=== PATIENT | female | born 1980 | race Caucasian/White ===

== ENCOUNTER 2018-07-14 13:25 | Emergency (ER) | payer MEDICAID ==
[~2018-07-14] VITALS: Ht 165.1 cm; Wt 128.0 kg
[2018-07-14 14:15] LABS: BASOPHILS # (AUTO) 0.1 X10'3 (0-0.2); EOSINOPHILS # (AUTO) 0.2 X10'3 (0-0.9); EOSINOPHILS % (AUTO) 1.6 % (0-6); HEMATOCRIT 45.1 % (35.0-45.0); HEMOGLOBIN 15.3 g/dl (12.0-16.0); LYMPHOCYTES # (AUTO) 2.9 X10'3 (1.1-4.8); LYMPHOCYTES % (AUTO) 25.8 % (21-51); MEAN CORPUSCULAR HEMOGLOBIN 28.6 PG (27.0-31.0); MEAN CORPUSCULAR VOLUME 84.1 FL (78-98); MEAN PLATELET VOLUME 7.8 FL (7.4-10.4); MONOCYTES # (AUTO) 0.8 X10'3 (0-0.9); MONOCYTES % (AUTO) 7.3 % (2-12); NEUTROPHILS # (AUTO) 7.2 X10'3 (1.8-7.7); NEUTROPHILS % (AUTO) 64.3 % (42-75); PLATELET COUNT 329 X10'3 (140-440); RED BLOOD COUNT 5.36 X10'6 (4.20-5.60); RED CELL DISTRIBUTION WIDTH 13.1 % (11.5-14.5); WHITE BLOOD COUNT 11.1 X10'3 (4.5-11.0)
[2018-07-14 14:32] LABS: ALANINE AMINOTRANSFERASE 62 U/L (12-78); ALBUMIN/GLOBULIN RATIO 0.9 (1.1-1.5); ALKALINE PHOSPHATASE 111 IU/L (46-116); ANION GAP 6 (8-16); ASPARTATE AMINO TRANSFERASE 32 U/L (10-37); BILIRUBIN,TOTAL 0.4 MG/DL (0.1-1.0); BLOOD UREA NITROGEN 14 MG/DL (7-18); BUN/CREATININE RATIO 18.9 (6.6-38.0); CALCIUM 9.1 MG/DL (8.5-10.1); CHLORIDE 101 MMOL/L (99-107); CREATININE 0.74 MG/DL (0.40-0.90); GLUCOSE 302 MG/DL (70-104); LIPASE 151 U/L (73-393); POTASSIUM 4.2 MMOL/L (3.5-5.1); SODIUM 136 MMOL/L (135-145); TOTAL CARBON DIOXIDE 28.8 MMOL/L (24-32); TOTAL PROTEIN 8.4 G/DL (6.4-8.2); eGFR 87 ML/MIN
[2018-07-14 15:10] LABS: CLARITY,URINE CLEAR (Clear); COLOR,URINE YELLOW (Yellow); GLUCOSE, URINE >=1000 mg/dl (Neg); KETONES,URINE NEGATIVE (Neg); LEUKOCYTE ESTERASE ,URINE NEGATIVE (Neg); NITRITES, URINE NEGATIVE (Neg); OCCULT BLOOD,URINE TRACE-LYSED (Neg); PROTEIN,URINE TRACE mg/dl (Neg); UA COLLECTION TYPE NON-SPECIFIED; UROBILINOGEN,URINE 0.2 E.U/dL (0.2-1.0)
[2018-07-14 15:11] LABS: URINE HCG NEGATIVE (NEG)
[2018-07-14 15:16] LABS: BACTERIA,URINE 1+ /HPF (Neg); HYALINE CASTS 0-3 /LPF (NEGATIVE); RBC,URINE 0-2 /HPF (0-2); SQUAMOUS EPITHELIAL CELL,UR MODERATE /LPF (FEW); WBC,URINE 0-4 /HPF (0-4)
[2018-07-14] MEDS ORDERED: normal saline 1000ML IV soln IVB ONE (15:30)
[2018-07-14] MEDS ORDERED: ketorolac tromethamine 15mg/ml inj. IV ONE (15:30)
[2018-07-14] MEDS ORDERED: proCHLORperazine 10 MG/2 ml inj IV ONE (15:30)
[2018-07-14] MEDS ORDERED: diphenhydrAMINE 50 mg/ml inj IV ONE (15:30)
[2018-07-14 17:15] VITALS: BP 183/110
== END 2018-07-14 17:43 | disposition home or self-care (01) ==
LOC: ER 13:26
DX: K76.0 Fatty (change of) liver, not elsewhere classified (principal); R19.7 Diarrhea, unspecified; R11.10 Vomiting, unspecified; I10 Essential (primary) hypertension; E11.9 Type 2 diabetes mellitus without complications; F17.200 Nicotine dependence, unspecified, uncomplicated; Z88.0 Allergy status to penicillin
CPT/HCPCS: 36415; 74176; 80053; 81001; 81025; 82948; 83690; 85025; 96374; 96375; 99284; J0780; J1200; J1885

== ENCOUNTER 2020-02-01 11:29 | Emergency (ER) | payer MEDICAID ==
[~2020-02-01] VITALS: Ht 165.1 cm; Wt 122.7 kg
[2020-02-01 11:41] VITALS: BP 149/99
[2020-02-01] MEDS ORDERED: HYDR-4383 PO (12:10)
[2020-02-01] MEDS ORDERED: HYDROcodone/acetaminophen 10/325mg tab PO ONE (12:10)
[2020-02-01] MEDS ORDERED: clindamycin 150mg capsule PO ONE (12:10)
[2020-02-01] MEDS ORDERED: dexamethasone 4mg tablet PO SCH (12:10)
== END 2020-02-01 12:36 | disposition home or self-care (01) ==
LOC: ER 11:29
DX: K04.7 Periapical abscess without sinus (principal); L03.211 Cellulitis of face; I10 Essential (primary) hypertension; E11.9 Type 2 diabetes mellitus without complications; Z98.890 Other specified postprocedural states; Z88.0 Allergy status to penicillin; Z79.899 Other long term (current) drug therapy
CPT/HCPCS: 99283

== ENCOUNTER 2020-02-03 07:07 | Emergency (ER) | payer MEDICAID ==
[~2020-02-03] VITALS: Ht 165.1 cm; Wt 105.6 kg
[~2020-02-03 07:07] MED LIST: HYDR-4383 PO
[2020-02-03 08:00] LABS: BASOPHILS # (AUTO) 0.1 X10'3 (0-0.2); BASOPHILS % (AUTO) 1.1 % (0-1); EOSINOPHILS # (AUTO) 0.1 X10'3 (0-0.9); EOSINOPHILS % (AUTO) 0.6 % (0-6); LYMPHOCYTES # (AUTO) 3.5 X10'3 (1.1-4.8); LYMPHOCYTES % (AUTO) 29.2 % (21-51); MEAN CORPUSCULAR HEMOGLOBIN 29.2 PG (27.0-31.0); MEAN CORPUSCULAR HGB CONC 34.2 g/dL (33.0-36.5); MEAN CORPUSCULAR VOLUME 85.6 FL (78-98); MONOCYTES # (AUTO) 0.8 X10'3 (0-0.9); MONOCYTES % (AUTO) 6.5 % (2-12); NEUTROPHILS # (AUTO) 7.6 X10'3 (1.8-7.7); NEUTROPHILS % (AUTO) 62.6 % (42-75); PLATELET COUNT 295 X10'3 (140-440); RED BLOOD COUNT 4.79 X10'6 (4.20-5.60); RED CELL DISTRIBUTION WIDTH 13.1 % (11.5-14.5); WHITE BLOOD COUNT 12.1 X10'3 (4.5-11.0)
[2020-02-03 08:10] LABS: ALBUMIN 3.4 G/DL (3.4-5.0); ANION GAP 6 (8-16); BLOOD UREA NITROGEN 16 MG/DL (7-18); BUN/CREATININE RATIO 26.7 (6.6-38.0); CALCIUM 7.9 MG/DL (8.5-10.1); CHLORIDE 100 MMOL/L (99-107); GLUCOSE 249 MG/DL (70-104); POTASSIUM 3.6 MMOL/L (3.5-5.1); SODIUM 134 MMOL/L (135-145); TOTAL CARBON DIOXIDE 28.1 MMOL/L (24-32); eGFR > 90 ML/MIN
[2020-02-03] MEDS ORDERED: ondansetron/PF 4mg/2ml inj IV ONE (08:10)
[2020-02-03] MEDS ORDERED: iohexol 300mg/ml 100ml inj. ONE (08:15)
[2020-02-03] MEDS ORDERED: LIDOcaine 1% W/epiNEPHrine 1:200,000 10ml vial IJ ONE (09:20)
[2020-02-03] MEDS ORDERED: CHLO118M PO (10:00)
--- NOTE | 2020-02-03 10:10 | NUR ---
PATIENT HAD VS RECHECK AFTER PROCEDURE. BP 204/111. PATIENT STATES SHE HAS HYPERTENSION AND DID NOT TAKE HER MEDS THIS MORNING. DR. EMERSON NOTIFIED OF ELEVATED BP AND REINFORCED THAT PATIENT SHOULD TAKE BP MEDS WHEN SHE GETS HOME.
[2020-02-03 10:16] VITALS: BP 204/111
== END 2020-02-03 10:17 | disposition home or self-care (01) ==
LOC: ER 07:07
DX: K04.7 Periapical abscess without sinus (principal); I10 Essential (primary) hypertension; E11.9 Type 2 diabetes mellitus without complications; F12.90 Cannabis use, unspecified, uncomplicated; Z98.890 Other specified postprocedural states; Z88.0 Allergy status to penicillin; Z79.899 Other long term (current) drug therapy
CPT/HCPCS: 36415; 41800; 70487; 80048; 85025; 96374; 99285; J2405; Q9967

== ENCOUNTER 2020-04-21 16:12 | Emergency (ER) | payer MEDICAID ==
[~2020-04-21] VITALS: Ht 165.1 cm; Wt 122.7 kg
[~2020-04-21 16:12] MED LIST changes: +CHLO118M PO
[2020-04-21 17:36] VITALS: BP 164/115
== END 2020-04-21 18:26 | disposition home or self-care (01) ==
LOC: ER 16:12
DX: U07.1 COVID-19 (principal); R06.02 Shortness of breath; I10 Essential (primary) hypertension; E11.9 Type 2 diabetes mellitus without complications; Z98.891 History of uterine scar from previous surgery; Z88.0 Allergy status to penicillin; Z79.899 Other long term (current) drug therapy
CPT/HCPCS: 99283

== ENCOUNTER 2020-11-24 10:55 | Emergency (ER) | payer MEDICAID ==
[~2020-11-24] VITALS: Ht 165.1 cm; Wt 123.2 kg
[2020-11-24 12:11] LABS: BASOPHILS # (AUTO) 0.1 X10'3 (0-0.2); BASOPHILS % (AUTO) 0.8 % (0-1); EOSINOPHILS # (AUTO) 0.2 X10'3 (0-0.9); EOSINOPHILS % (AUTO) 1.8 % (0-6); HEMATOCRIT 44.2 % (35.0-45.0); HEMOGLOBIN 14.8 g/dl (12.0-16.0); LYMPHOCYTES # (AUTO) 2.9 X10'3 (1.1-4.8); LYMPHOCYTES % (AUTO) 26.5 % (21-51); MEAN CORPUSCULAR HEMOGLOBIN 29.2 PG (27.0-31.0); MEAN CORPUSCULAR HGB CONC 33.6 g/dL (33.0-36.5); MEAN CORPUSCULAR VOLUME 86.8 FL (78-98); MEAN PLATELET VOLUME 7.7 FL (7.4-10.4); MONOCYTES # (AUTO) 0.8 X10'3 (0-0.9); MONOCYTES % (AUTO) 7.6 % (2-12); NEUTROPHILS % (AUTO) 63.3 % (42-75); PLATELET COUNT 347 X10'3 (140-440); RED BLOOD COUNT 5.09 X10'6 (4.20-5.60); RED CELL DISTRIBUTION WIDTH 12.9 % (11.5-14.5)
[2020-11-24 12:15] LABS: URINE HCG NEGATIVE (NEG)
[2020-11-24 12:17] LABS: CLARITY,URINE CLOUDY (Clear); COLOR,URINE YELLOW (Yellow); GLUCOSE, URINE NEGATIVE (Neg); KETONES,URINE NEGATIVE (Neg); LEUKOCYTE ESTERASE ,URINE NEGATIVE (Neg); NITRITES, URINE NEGATIVE (Neg); OCCULT BLOOD,URINE NEGATIVE (Neg); PROTEIN,URINE NEGATIVE (Neg); UROBILINOGEN,URINE 0.2 E.U/dL (0.2-1.0)
[2020-11-24 12:25] LABS: ALANINE AMINOTRANSFERASE 62 U/L (12-78); ALBUMIN 3.9 G/DL (3.4-5.0); ALBUMIN/GLOBULIN RATIO 0.9 (1.1-1.5); ALKALINE PHOSPHATASE 66 IU/L (46-116); ANION GAP 12 (8-16); ASPARTATE AMINO TRANSFERASE 37 U/L (10-37); BILIRUBIN,TOTAL 0.7 MG/DL (0.1-1.0); BLOOD UREA NITROGEN 13 MG/DL (7-18); CHLORIDE 100 MMOL/L (99-107); CREATININE 0.62 MG/DL (0.40-0.90); GLUCOSE 145 MG/DL (70-104); LIPASE 134 U/L (73-393); POTASSIUM 4.2 MMOL/L (3.5-5.1); SODIUM 140 MMOL/L (135-145); TOTAL CARBON DIOXIDE 27.9 MMOL/L (24-32); TOTAL PROTEIN 8.3 G/DL (6.4-8.2); eGFR > 90 ML/MIN
[2020-11-24 12:27] LABS: MUCUS STRANDS FEW /LPF (Neg); SQUAMOUS EPITHELIAL CELL,UR MODERATE /LPF (FEW); UA COLLECTION TYPE CLN CATCH MIDSTREAM
[2020-11-24 12:28] LABS: BACTERIA,URINE 1+ /HPF (Neg); RBC,URINE 0-2 /HPF (0-2); WBC,URINE 0-4 /HPF (0-4)
[2020-11-24] MEDS ORDERED: FAMO40TA73 PO (14:41)
[2020-11-24 15:21] VITALS: BP 136/87
== END 2020-11-24 15:25 | disposition home or self-care (01) ==
LOC: ER 10:55
DX: R10.13 Epigastric pain (principal); R11.0 Nausea; I10 Essential (primary) hypertension; E11.9 Type 2 diabetes mellitus without complications; Z98.890 Other specified postprocedural states; Z88.0 Allergy status to penicillin; Z79.899 Other long term (current) drug therapy
CPT/HCPCS: 36415; 76700; 80053; 81001; 81025; 83690; 85025; 99284

== ENCOUNTER → 2021-03-01 | Outpatient (CLI) | payer MEDICAID ==
[~2021-03-01] MED LIST changes: +FAMO40TA73 PO
== END | disposition home or self-care (01) ==
LOC: RAD 08:37 → EDSTATUS 09:00
PROVIDERS: ATTEND Physician Assistant Medical
DX: R10.13 Epigastric pain (principal); E11.9 Type 2 diabetes mellitus without complications
CPT/HCPCS: 78264; A9541

== ENCOUNTER 2021-05-24 02:39 | Emergency (ER) | payer MEDICAID ==
[~2021-05-24] VITALS: Ht 165.1 cm; Wt 122.7 kg
[2021-05-24 03:00] VITALS: BP 187/117
[2021-05-24 03:38] LABS: BASOPHILS # (AUTO) 0.1 X10'3 (0-0.2); BASOPHILS % (AUTO) 0.8 % (0-1); EOSINOPHILS # (AUTO) 0.1 X10'3 (0-0.9); EOSINOPHILS % (AUTO) 1.7 % (0-6); HEMATOCRIT 44.2 % (35.0-45.0); LYMPHOCYTES # (AUTO) 1.8 X10'3 (1.1-4.8); LYMPHOCYTES % (AUTO) 25.5 % (21-51); MEAN CORPUSCULAR HEMOGLOBIN 29.3 PG (27.0-31.0); MEAN CORPUSCULAR VOLUME 86.4 FL (78-98); MEAN PLATELET VOLUME 8.1 FL (7.4-10.4); MONOCYTES # (AUTO) 0.8 X10'3 (0-0.9); MONOCYTES % (AUTO) 11.1 % (2-12); NEUTROPHILS # (AUTO) 4.4 X10'3 (1.8-7.7); NEUTROPHILS % (AUTO) 60.9 % (42-75); PLATELET COUNT 252 X10'3 (140-440); RED BLOOD COUNT 5.11 X10'6 (4.20-5.60); RED CELL DISTRIBUTION WIDTH 13.5 % (11.5-14.5); WHITE BLOOD COUNT 7.2 X10'3 (4.5-11.0)
[2021-05-24 03:45] LABS: ALBUMIN 3.5 G/DL (3.4-5.0); ANION GAP 12 (8-16); BLOOD UREA NITROGEN 14 MG/DL (7-18); BUN/CREATININE RATIO 23.3 (6.6-38.0); CALCIUM 8.6 MG/DL (8.5-10.1); CHLORIDE 101 MMOL/L (99-107); GLUCOSE 257 MG/DL (70-104); SODIUM 136 MMOL/L (135-145); TOTAL CARBON DIOXIDE 23.4 MMOL/L (24-32); eGFR > 90 ML/MIN
[2021-05-24 03:48] LABS: D-DIMER 0.27 MG/L FEU (0-0.50)
[2021-05-24] MEDS ORDERED: dexamethasone 4mg tablet PO ONE ×2 (03:55→04:00)
== END 2021-05-24 04:26 | disposition home or self-care (01) ==
LOC: ER 02:40
DX: U07.1 COVID-19 (principal); I10 Essential (primary) hypertension; E11.9 Type 2 diabetes mellitus without complications; Z98.890 Other specified postprocedural states; Z88.0 Allergy status to penicillin
CPT/HCPCS: 36415; 71045; 80048; 85025; 85379; 87635; 93005; 99285; C9803

== ENCOUNTER 2022-05-14 06:41 | Emergency (ER) | payer MEDICAID ==
[~2022-05-14] VITALS: Ht 167.6 cm; Wt 118.0 kg
[2022-05-14] MEDS ORDERED: ketorolac tromethamine 15mg/ml inj. IV ONE (07:35)
[2022-05-14] MEDS ORDERED: pantoprazole 40 MG vial IV ONE (07:35)
[2022-05-14] MEDS ORDERED: normal saline 1000ML IV soln IVB ONE (07:35)
[2022-05-14 07:51] LABS: BASOPHILS # (AUTO) 0.1 X10'3 (0-0.2); BASOPHILS % (AUTO) 1.2 % (0-1); EOSINOPHILS # (AUTO) 0.1 X10'3 (0-0.9); EOSINOPHILS % (AUTO) 1.5 % (0-6); HEMOGLOBIN 14.4 g/dl (12.0-16.0); LYMPHOCYTES # (AUTO) 2.5 X10'3 (1.1-4.8); LYMPHOCYTES % (AUTO) 25.9 % (21-51); MEAN CORPUSCULAR HEMOGLOBIN 29.7 PG (27.0-31.0); MEAN CORPUSCULAR HGB CONC 34.3 g/dL (33.0-36.5); MEAN CORPUSCULAR VOLUME 86.5 FL (78-98); MEAN PLATELET VOLUME 7.4 FL (7.4-10.4); MONOCYTES # (AUTO) 0.6 X10'3 (0-0.9); MONOCYTES % (AUTO) 6.7 % (2-12); NEUTROPHILS # (AUTO) 6.2 X10'3 (1.8-7.7); NEUTROPHILS % (AUTO) 64.7 % (42-75); PLATELET COUNT 293 X10'3 (140-440); RED BLOOD COUNT 4.85 X10'6 (4.20-5.60); RED CELL DISTRIBUTION WIDTH 13.2 % (11.5-14.5); WHITE BLOOD COUNT 9.6 X10'3 (4.5-11.0)
[2022-05-14] MEDS ORDERED: pantoprazole 40MG/NS 100ML BAG 100 ML IV ONE (07:55)
[2022-05-14 08:05] LABS: ALANINE AMINOTRANSFERASE 40 U/L (12-78); ALBUMIN 3.7 G/DL (3.4-5.0); ALBUMIN/GLOBULIN RATIO 0.9 (1.1-1.5); ALKALINE PHOSPHATASE 80 IU/L (46-116); ANION GAP 9 (8-16); ASPARTATE AMINO TRANSFERASE 29 U/L (10-37); BILIRUBIN,TOTAL 0.5 MG/DL (0.1-1.0); BLOOD UREA NITROGEN 13 MG/DL (7-18); BUN/CREATININE RATIO 20.3 (6.6-38.0); CALCIUM 8.6 MG/DL (8.5-10.1); CHLORIDE 102 MMOL/L (99-107); CREATININE 0.64 MG/DL (0.40-0.90); GLUCOSE 215 MG/DL (70-104); LIPASE 90 U/L (73-393); SODIUM 137 MMOL/L (135-145); TOTAL PROTEIN 7.6 G/DL (6.4-8.2); eGFR > 90 ML/MIN
[2022-05-14 09:48] LABS: CLARITY,URINE SLIGHTLY CLOUDY (Clear); COLOR,URINE YELLOW (Yellow); GLUCOSE, URINE 250 mg/dl (Neg); KETONES,URINE NEGATIVE (Neg); LEUKOCYTE ESTERASE ,URINE NEGATIVE (Neg); NITRITES, URINE NEGATIVE (Neg); OCCULT BLOOD,URINE NEGATIVE (Neg); PROTEIN,URINE NEGATIVE (Neg); UROBILINOGEN,URINE 0.2 E.U/dL (0.2-1.0)
[2022-05-14 09:51] LABS: URINE HCG NEGATIVE (NEG)
[2022-05-14 09:53] LABS: UA COLLECTION TYPE CLN CATCH MIDSTREAM
[2022-05-14 09:56] LABS: BACTERIA,URINE FEW /HPF (Neg); MUCUS STRANDS MODERATE /LPF (Neg); RBC,URINE NONE SEEN /HPF (0-2); SQUAMOUS EPITHELIAL CELL,UR MODERATE /LPF (FEW); WBC,URINE 0-4 /HPF (0-4)
[2022-05-14 10:20] VITALS: BP 171/112
[2022-05-14] MEDS ORDERED: PANT-47 PO (10:28)
[2022-05-14] MEDS ORDERED: ondansetron/PF 4mg/2ml inj IV ONE (10:30)
[2022-05-14] MEDS ORDERED: morphine 4 MG/ML inj SYRINge IV ONE (10:30)
== END 2022-05-14 10:39 | disposition home or self-care (01) ==
LOC: ER 06:41
DX: G89.29 Other chronic pain (principal); R10.30 Lower abdominal pain, unspecified; I10 Essential (primary) hypertension; E11.9 Type 2 diabetes mellitus without complications; Z88.0 Allergy status to penicillin; Z79.899 Other long term (current) drug therapy; Z79.1 Long term (current) use of non-steroidal anti-inflammatories (NSAID)
CPT/HCPCS: 36415; 80053; 81001; 81025; 83690; 85025; 96365; 96375; 99284; C9113; J1885; J2270; J2405; J7030

== ENCOUNTER 2023-02-16 17:27 | Emergency (ER) | payer MEDICAID ==
[~2023-02-16] VITALS: Ht 165.1 cm; Wt 116.8 kg
[~2023-02-16 17:27] MED LIST changes: +PANT-47 PO
[2023-02-16 17:51] LABS: EOSINOPHILS # (AUTO) 0.2 X10'3 (0-0.9); MONOCYTES # (AUTO) 0.7 X10'3 (0-0.9)
[2023-02-16 17:53] LABS: BASOPHILS # (AUTO) 0.1 X10'3 (0-0.2); BASOPHILS % (AUTO) 0.9 % (0-1); EOSINOPHILS % (AUTO) 1.8 % (0-6); HEMATOCRIT 42.8 % (35.0-45.0); HEMOGLOBIN 14.6 g/dl (12.0-16.0); LYMPHOCYTES # (AUTO) 3.4 X10'3 (1.1-4.8); LYMPHOCYTES % (AUTO) 30.1 % (21-51); MEAN CORPUSCULAR HEMOGLOBIN 29.8 PG (27.0-31.0); MEAN CORPUSCULAR HGB CONC 34.1 g/dL (33.0-36.5); MEAN CORPUSCULAR VOLUME 87.5 FL (78-98); MEAN PLATELET VOLUME 7.6 FL (7.4-10.4); MONOCYTES % (AUTO) 6.5 % (2-12); NEUTROPHILS # (AUTO) 6.8 X10'3 (1.8-7.7); NEUTROPHILS % (AUTO) 60.7 % (42-75); PLATELET COUNT 306 X10'3 (140-440); RED BLOOD COUNT 4.89 X10'6 (4.20-5.60); RED CELL DISTRIBUTION WIDTH 13.5 % (11.5-14.5); WHITE BLOOD COUNT 11.2 X10'3 (4.5-11.0)
[2023-02-16 18:20] LABS: ALANINE AMINOTRANSFERASE 41 U/L (12-78); ALBUMIN 3.6 G/DL (3.4-5.0); ALBUMIN/GLOBULIN RATIO 0.8 (1.1-1.5); ALKALINE PHOSPHATASE 69 IU/L (46-116); ANION GAP 5 (8-16); ASPARTATE AMINO TRANSFERASE 24 U/L (10-37); BILIRUBIN,TOTAL 0.7 MG/DL (0.1-1.0); BLOOD UREA NITROGEN 18 MG/DL (7-18); BUN/CREATININE RATIO 18.6 (10.0-20.0); CHLORIDE 103 MMOL/L (99-107); CREATININE 0.97 MG/DL (0.40-0.90); GLUCOSE 154 MG/DL (70-104); POTASSIUM 3.8 MMOL/L (3.5-5.1); SODIUM 136 MMOL/L (135-145); TOTAL CARBON DIOXIDE 27.7 MMOL/L (24-32); TOTAL PROTEIN 7.9 G/DL (6.4-8.2); eGFR 63 ML/MIN
[2023-02-16 18:23] LABS: PRO BRAIN NATRIURETIC PEPTIDE 53 PG/ML (0-125)
[2023-02-16] MEDS ORDERED: NORMAL SALINE IV ONE (21:15)
[2023-02-16] MEDS ORDERED: MAGNESIUM SULF IV ONE (21:15)
[2023-02-16] MEDS ORDERED: magnesium sulf injection 1 GM in normal saline 50ml IV soln 50 ML IV ONE (21:15)
[2023-02-16] MEDS: normal saline 1000ml 1,000 ML IV SCH ×3 (21:50→22:50)
[2023-02-16 22:16] LABS: HCG SERUM QL NEGATIVE
[2023-02-16] MEDS ORDERED: iohexol 350MG/ML 100ml bottle IV ONE (22:36)
[2023-02-17] MEDS ORDERED: OMEP20CA16 PO (00:03)
[2023-02-17] MEDS ORDERED: SEMA0.258 (00:03)
[2023-02-17] MEDS ORDERED: CHOL20003 PO (00:03)
[2023-02-17] MEDS ORDERED: VALS80TA32 PO (00:03)
[2023-02-17] MEDS: normal saline 1000ml 1,000 ML IV SCH ×2 (00:06→00:50)
[2023-02-17 05:00] VITALS: TEMP 98.1
--- NOTE | 2023-02-17 07:29 | NUR ---
MRI FORM FAXED, ATTEMPTED TO CALL MRI AND NOTIFY THEM PT HAS TWO FACIAL PIERCING THAT SHE STATES CANNOT BE REMOVED.
--- NOTE | 2023-02-17 08:10 | NUR ---
SPOKE WITH BRAEDEN CORDERO, WHO STATED LIP AND NOSE RING CAN REMAIN IN FOR EXAM.
[2023-02-17] MEDS ORDERED: LORazepam 2 mg/ml vial IV ONE (08:15)
--- NOTE | 2023-02-17 09:13 | NUR ---
Pt to MRI via WC with coding tech
[2023-02-17] MEDS ORDERED: acetaminophen 325mg tablet PO ONE (11:35)
--- NOTE | 2023-02-17 13:34 | NUR ---
MD AT BEDSIDE UPDATING PATIENT AND FAMILY MEMBERS. PER OKAY FOR PT TO EAT
--- NOTE | 2023-02-17 14:37 | NUR ---
die maintenance technician paged regarding carotid ultrasound order
--- NOTE | 2023-02-17 14:57 | NUR ---
US AT BEDSIDE FOR CAROTID U/S
[2023-02-17 16:16] VITALS: BP 140/86; PULSE 87; RESP 16; O2SAT 95
== END 2023-02-17 16:19 | disposition home or self-care (01) ==
LOC: ER 17:29
DX: G45.3 Amaurosis fugax (principal); I67.1 Cerebral aneurysm, nonruptured; I72.9 Aneurysm of unspecified site; I10 Essential (primary) hypertension; E11.9 Type 2 diabetes mellitus without complications; Z88.0 Allergy status to penicillin; Z79.899 Other long term (current) drug therapy; Z98.890 Other specified postprocedural states
CPT/HCPCS: 36415; 70450; 70496; 70498; 70551; 71045; 80053; 82948; 83880; 84484; 84703; 85025; 93005; 93880; 96365; 96375; 99285; J2060; J3475; J3490; J7030; Q9967; C1758

== ENCOUNTER 2023-02-23 12:51 | Inpatient (IN) | payer MEDICAID ==
[~2023-02-23] VITALS: Ht 165.1 cm; Wt 113.0 kg
[~2023-02-23 12:51] MED LIST changes: -CHLO118M PO; +CHOL20003 PO; -FAMO40TA73 PO; -HYDR-4383 PO; +OMEP20CA16 PO; -PANT-47 PO; +SEMA0.258 SQ; +VALS80TA32 PO
--- NOTE | 2023-02-23 13:08 | NUR ---
SPOKE WITH DR GALVAN WHO DOES NOT BELEIVE A STROKE ALERT IS WARRANTED AT THIS TIME
[2023-02-23] MEDS ORDERED: iohexol 350MG/ML 100ml bottle IV ONE (16:16)
[2023-02-23 16:29] LABS: BASOPHILS # (AUTO) 0.1 X10'3 (0-0.2); BASOPHILS % (AUTO) 1.1 % (0-1); EOSINOPHILS # (AUTO) 0.2 X10'3 (0-0.9); EOSINOPHILS % (AUTO) 1.7 % (0-6); HEMATOCRIT 43.3 % (35.0-45.0); HEMOGLOBIN 14.9 g/dl (12.0-16.0); LYMPHOCYTES # (AUTO) 2.7 X10'3 (1.1-4.8); LYMPHOCYTES % (AUTO) 27.4 % (21-51); MEAN CORPUSCULAR HEMOGLOBIN 30.2 PG (27.0-31.0); MEAN CORPUSCULAR HGB CONC 34.5 g/dL (33.0-36.5); MEAN CORPUSCULAR VOLUME 87.7 FL (78-98); MEAN PLATELET VOLUME 7.6 FL (7.4-10.4); MONOCYTES # (AUTO) 0.7 X10'3 (0-0.9); MONOCYTES % (AUTO) 7.1 % (2-12); NEUTROPHILS # (AUTO) 6.1 X10'3 (1.8-7.7); NEUTROPHILS % (AUTO) 62.7 % (42-75); PLATELET COUNT 323 X10'3 (140-440); RED BLOOD COUNT 4.93 X10'6 (4.20-5.60); RED CELL DISTRIBUTION WIDTH 13.6 % (11.5-14.5); WHITE BLOOD COUNT 9.8 X10'3 (4.5-11.0)
--- NOTE | 2023-02-23 16:31 | NUR ---
NOTIFIED CUTTER BRAKE LINING SID THAT DR ROY IS CALLING STROKE ALERT. NO BEDS AVAILABLE AT THIS TIME. CLARIFIED TO BOTH DR ROY AND CUTTER BRAKE LINING THAT THIS MEANS PT IS STROKE ALERT WITHOUT A NURSE
[2023-02-23 16:38] LABS: APTT 27 SECONDS (22-32); PROTHROMBIN TIME 10.3 SECONDS (9.0-12.0)
[2023-02-23 16:40] LABS: ALANINE AMINOTRANSFERASE 61 U/L (12-78); ALBUMIN 3.8 G/DL (3.4-5.0); ALKALINE PHOSPHATASE 78 IU/L (46-116); ANION GAP 8 (8-16); ASPARTATE AMINO TRANSFERASE 32 U/L (10-37); BILIRUBIN,TOTAL 0.3 MG/DL (0.1-1.0); BLOOD UREA NITROGEN 12 MG/DL (7-18); CALCIUM 9.1 MG/DL (8.5-10.1); CHLORIDE 103 MMOL/L (99-107); GLUCOSE 166 MG/DL (70-104); POTASSIUM 3.9 MMOL/L (3.5-5.1); SODIUM 139 MMOL/L (135-145); TOTAL CARBON DIOXIDE 27.7 MMOL/L (24-32); TOTAL PROTEIN 7.8 G/DL (6.4-8.2); eCRCL 109 ML/MIN; eGFR > 90 ML/MIN
[2023-02-23] MEDS ORDERED: morphine 2 MG/ML inj. syringe IV PRN (19:20)
[2023-02-23] MEDS ORDERED: insulin Lispro (HumaLOG) vial - multi-dose SQ SCH (19:20)
[2023-02-23] MEDS ORDERED: HYDROcodone/acetaminophen 5mg/325mg tablet PO PRN (19:20)
[2023-02-23] MEDS ORDERED: potassium Cl 20 mEq SR tablet PO PRN ×2 (19:20)
[2023-02-23] MEDS ORDERED: potassium Cl 40MEQ/1/2NS 520ml 520 ML IV PRN (19:20)
[2023-02-23] MEDS ORDERED: magnesium Cl slow-release 64mg tablet PO PRN (19:20)
[2023-02-23] MEDS ORDERED: DEXTROSE 15 GM of carb/4 tabs (each vial/BOTTLE has 4 tablets) PO PRN ×2 (19:20)
[2023-02-23] MEDS ORDERED: magnesium 4gm in 100ml NS 100 ML IV PRN (19:20)
[2023-02-23] MEDS ORDERED: glucagon, human recombinant 1mg kit SUBCUT PRN (19:20)
[2023-02-23] MEDS ORDERED: magnesium 2GM in 50ml NS 50 ML IV PRN (19:20)
[2023-02-23] MEDS ORDERED: acetaminophen 325mg tablet PO PRN ×2 (19:20)
[2023-02-23] MEDS ORDERED: dextrose 50%-water 50ml dispensing syringe IV PRN ×2 (19:20)
[2023-02-23] MEDS ORDERED: MESSAGE TO PHARMACY PO ONE (19:20)
[2023-02-23 19:39] LABS: C-REACTIVE PROTEIN 0.74 MG/DL (0.0-0.5)
--- NOTE | 2023-02-23 19:43 | NUR ---
Yana bahena in ED - 02/23/23 at 1944 by TORSTEN PT STILL IN ROOM 18 AND HAS NOT MOVED TO ROOM [address] GALVAN SPEAKING WITH PT IN ROOM 18.
--- NOTE | 2023-02-23 19:45 | NUR ---
PT STILL IN ROOM 18 AND HAS NOT MOVED TO ROOM [address] GALVAN SPEAKING WITH PT IN ROOM 18. THIS RN HAS NOT ASSUMED CRE YET UNTIL THE PATIENT IS MOVED TO ROOM 6.
[2023-02-23] MEDS ORDERED: enoxaparin 40mg/0.4ml syringe SQ SCH (20:00)
[2023-02-23] MEDS ORDERED: AMLO-708 PO (20:20)
[2023-02-23] MEDS ORDERED: HYDR-3686 PO (20:20)
[2023-02-23] MEDS ORDERED: GABA300C PO (20:20)
[2023-02-23] MEDS ORDERED: ASPI-1265 PO (20:21)
[2023-02-23] MEDS: normal saline 1000ml 1,000 ML IV SCH (20:33)
[2023-02-23] MEDS ORDERED: insulin glargine (Lantus) pen - multi-dose SQ SCH (21:00)
--- NOTE | 2023-02-23 21:24 | NUR ---
MRI SCREENING FORM COMPLETED AND FAXED TO MRI
[2023-02-23 22:43] LABS: BILIRUBIN,URINE NEGATIVE (Neg); CLARITY,URINE SLIGHTLY CLOUDY (Clear); COLOR,URINE YELLOW (Yellow); GLUCOSE, URINE 500 mg/dl (Neg); KETONES,URINE TRACE mg/dl (Neg); LEUKOCYTE ESTERASE ,URINE NEGATIVE (Neg); NITRITES, URINE NEGATIVE (Neg); OCCULT BLOOD,URINE NEGATIVE (Neg); PROTEIN,URINE NEGATIVE (Neg); UROBILINOGEN,URINE 0.2 E.U/dL (0.2-1.0)
[2023-02-23 23:11] LABS: UA COLLECTION TYPE CLN CATCH MIDSTREAM
[2023-02-23 23:13] LABS: BACTERIA,URINE FEW /HPF (Neg); MUCUS STRANDS NONE SEEN /LPF (Neg); RBC,URINE NONE SEEN /HPF (0-2); SQUAMOUS EPITHELIAL CELL,UR MANY /LPF (FEW); WBC,URINE 0-4 /HPF (0-4)
[2023-02-24 01:00] VITALS: BP 126/73; PULSE 84; RESP 18; TEMP 98; O2SAT 95
--- NOTE | 2023-02-24 01:00 | NUR ---
Patient in room ORTHO 4006. I have received report from SRIKANTH Page and had the opportunity to ask questions and assume patient care.
[2023-02-24 01:45] VITALS: RESP 17; O2SAT 95
[2023-02-24] MEDS ORDERED: gabapentin 300mg capsule PO PRN (05:05)
[2023-02-24 06:10] LABS: BASOPHILS # (AUTO) 0.1 X10'3 (0-0.2); BASOPHILS % (AUTO) 1.1 % (0-1); EOSINOPHILS # (AUTO) 0.2 X10'3 (0-0.9); EOSINOPHILS % (AUTO) 2.6 % (0-6); HEMATOCRIT 37.8 % (35.0-45.0); HEMOGLOBIN 12.9 g/dl (12.0-16.0); LYMPHOCYTES # (AUTO) 2.7 X10'3 (1.1-4.8); LYMPHOCYTES % (AUTO) 40.9 % (21-51); MEAN CORPUSCULAR HGB CONC 34.2 g/dL (33.0-36.5); MEAN CORPUSCULAR VOLUME 87.6 FL (78-98); MEAN PLATELET VOLUME 8.4 FL (7.4-10.4); MONOCYTES # (AUTO) 0.5 X10'3 (0-0.9); MONOCYTES % (AUTO) 7.4 % (2-12); NEUTROPHILS # (AUTO) 3.2 X10'3 (1.8-7.7); PLATELET COUNT 261 X10'3 (140-440); RED BLOOD COUNT 4.31 X10'6 (4.20-5.60); RED CELL DISTRIBUTION WIDTH 13.4 % (11.5-14.5); WHITE BLOOD COUNT 6.6 X10'3 (4.5-11.0)
[2023-02-24 06:11] LABS: HEMOGLOBIN A1C 7.2 % (4.5-6.2)
[2023-02-24 06:26] LABS: ALANINE AMINOTRANSFERASE 49 U/L (12-78); ALBUMIN 3.2 G/DL (3.4-5.0); ALBUMIN/GLOBULIN RATIO 0.9 (1.1-1.5); ALKALINE PHOSPHATASE 85 IU/L (46-116); ANION GAP 6 (8-16); ASPARTATE AMINO TRANSFERASE 19 U/L (10-37); BILIRUBIN,TOTAL 0.3 MG/DL (0.1-1.0); BLOOD UREA NITROGEN 12 MG/DL (7-18); CALCIUM 8.7 MG/DL (8.5-10.1); CHLORIDE 103 MMOL/L (99-107); CHOL/HDL RATIO 3.7 (0.00-4.99); CHOLESTEROL 126 MG/DL (0-200); CREATININE 0.48 MG/DL (0.40-0.90); GLUCOSE 170 MG/DL (70-104); HDL CHOLESTEROL 34 MG/DL (35-60); LDL CHOLESTEROL 68 MG/DL (50-100); POTASSIUM 3.5 MMOL/L (3.5-5.1); SODIUM 137 MMOL/L (135-145); TOTAL PROTEIN 6.7 G/DL (6.4-8.2); TRIGLYCERIDES 111 MG/DL (20-135); eCRCL 136 ML/MIN; eGFR > 90 ML/MIN
--- NOTE | 2023-02-24 06:49 | NUR ---
Patient in room ORTHO 4006. I have received report from Addis DUKE and had the opportunity to ask questions and assume patient care.
[2023-02-24 07:00] VITALS: BP 136/82; PULSE 68; RESP 16; TEMP 97.7; O2SAT 97
[2023-02-24] MEDS ORDERED: pantoprazole 40mg Tablet.DR PO SCH (07:30)
[2023-02-24] MEDS ORDERED: amLODIPine 5mg tablet PO SCH (08:00)
[2023-02-24] MEDS ORDERED: losartan 50mg tablet PO SCH (08:00)
[2023-02-24] MEDS: normal saline 1000ml 1,000 ML IV SCH (08:40)
--- NOTE | 2023-02-24 10:14 | NUR ---
Paged for echo.
[2023-02-24 10:58] VITALS: BP 142/85; PULSE 77; RESP 18; TEMP 97.6; O2SAT 96
[2023-02-24] MEDS ORDERED: LORazepam 2 mg/ml vial IV ONE (11:40)
--- NOTE | 2023-02-24 12:20 | NUR ---
Per EMR pt with T2DM, well controlled with A1c 7.2% which is down from 9% per H&P. Written DM education with RD contact information placed in patient's chart. Will remain available. Addendum: 02/24/23 at [address] Amended: Links added.
[2023-02-24 15:00] VITALS: BP 152/87; PULSE 87; RESP 15; TEMP 98.7; O2SAT 93
[2023-02-24] MEDS ORDERED: SUMA25TA35 PO (15:48)
--- NOTE | 2023-02-24 17:07 | NUR ---
PATIENT WENT FOR mri AND HAD ECHO RESULTS PENDING FOR ECHO, RESULTS FOR mri SEEN BY dr CORDON PATIENT OK TO DC HOME. Al, Deon instructions given to patient . Patient DC home via private car with friend to home in stable condition
== END 2023-02-24 16:30 | disposition home or self-care (01) | DRG 47 ==
LOC: ER 12:52 → ED HOLD 19:26 → ORTHO 4S 02-24 01:00
PROVIDERS: ADMIT Internal Medicine; ATTEND Internal Medicine
PROC: B3251ZZ Computerized Tomography (CT Scan) of Bilateral Common Carotid Arteries using Low Osmolar Contrast (ICD-10-PCS; principal; 2023-02-23)
PROC: B32G1ZZ Computerized Tomography (CT Scan) of Bilateral Vertebral Arteries using Low Osmolar Contrast (ICD-10-PCS; 2023-02-23)
PROC: B32R1ZZ Computerized Tomography (CT Scan) of Intracranial Arteries using Low Osmolar Contrast (ICD-10-PCS; 2023-02-23)
PROC: B3281ZZ Computerized Tomography (CT Scan) of Bilateral Internal Carotid Arteries using Low Osmolar Contrast (ICD-10-PCS; 2023-02-23)
DX: G45.9 Transient cerebral ischemic attack, unspecified (principal); I72.8 Aneurysm of other specified arteries; E11.9 Type 2 diabetes mellitus without complications; G43.109 Migraine with aura, not intractable, without status migrainosus; I16.1 Hypertensive emergency; F17.210 Nicotine dependence, cigarettes, uncomplicated; F10.20 Alcohol dependence, uncomplicated; G89.29 Other chronic pain; I10 Essential (primary) hypertension; Z98.891 History of uterine scar from previous surgery; Z88.0 Allergy status to penicillin; Z79.82 Long term (current) use of aspirin; Z79.899 Other long term (current) drug therapy
CPT/HCPCS: 36415; 70450; 70496; 70498; 70551; 71045; 80053; 80061; 81001; 82948; 83036; 85025; 85610; 85651; 85730; 86140; 86885; 86900; 86901; 87081; 93005; 93306; 97116; 97161; 97530; 99285; G0378; J1650; J1815; J2060; J3490; J7030; Q9967

== ENCOUNTER 2024-10-02 14:27 | Inpatient (IN) | payer MEDICAID ==
[~2024-10-02] VITALS: Ht 165.1 cm; Wt 118.0 kg
[~2024-10-02 14:27] MED LIST changes: +AMLO-708 PO; +ASPI-1265 PO; +GABA300C PO; +HYDR-3686 PO; -SEMA0.258 SQ; +SUMA25TA35 PO
[2024-10-02] MEDS ORDERED: potassium Cl 20 mEq SR tablet PO PRN ×2 (21:35)
[2024-10-02] MEDS ORDERED: potassium Cl 40MEQ/1/2NS 520ml 520 ML IV PRN (21:35)
[2024-10-02] MEDS ORDERED: magnesium hydroxide 30ml (MOM) UD suspension PO PRN (21:35)
[2024-10-02] MEDS ORDERED: acetaminophen 325mg tablet PO PRN (21:35)
[2024-10-02] MEDS ORDERED: magnesium sulf-water 2g/50mL 50 ML IV PRN (21:35)
[2024-10-02] MEDS ORDERED: morphine 2 MG/ML inj. syringe IV PRN ×2 (21:35)
[2024-10-02] MEDS ORDERED: magnesium sulf-water 4G/100mL 100 ML IV PRN (21:35)
[2024-10-02] MEDS ORDERED: magnesium Cl slow-release 64mg tablet PO PRN (21:35)
[2024-10-02] MEDS ORDERED: mag hydrox/Alum hydrox/simeth 30ml oral suspension PO PRN (21:35)
--- NOTE | 2024-10-02 21:36 | HISTORY AND PHYSICAL-Residence ---
History & Physical Providers to CC Resident Creating Document: NAHUN SCOTT, RES ~ History of Present Illness Primary Medical Doctor: None Reason for Admit\Complaint: Chest pain History of Present Illness 44-year-old female patient with past medical history of hypertension, type 2 diabetes mellitus came to the hospital transferred from [facility] with chief complaint of chest pain. The patient reports that approximately two days ago (started like), the patient experienced chest pain, retrosternal, pressure type, without radiation, scaled as an 8/10 in intensity which started approximately on Sunday at 6:00 a.m., did not go away until Sunday 2:00 a.m. currently the patient denies any chest pain, shortness of breath, palpitations. Associated to her chest pain on Sunday the patient also endorses sweating, mild headache, which prompted her to drive to [facility]. The patient reports that she had experienced a similar episode two weeks ago where it was a short episode less than 1 minute which resolved by itself. This time it last for a long period of time which prompted her to go to the hospital. At [place] the patient underwent CT angiogram of the chest ruling out pulmonary embolism and aortic dissection. EKG and cardiac enzyme test were negative for acute coronary syndrome. However, a nuclear stress test indicated a possible small area of ischemia in the distal anterior lateral wall, while in echocardiogram showed normal EF, [id number] left ventricular hypertrophy and grade 2 diastolic dysfunction. The patient was transferred for further management with cardiology. Allergies: Coded Allergies: Penicillins (Verified Allergy, Unknown, HIVES, 02/16/23) Home Medications Home Medications Active Imitrex (Sumatriptan Succinate) 25 Mg Tablet 25 Mg PO PRN 3 Days Reported Aspirin 81 Mg Tab.chew 1 Tab PO DAILY 30 Days Amlodipine Besylate 10 Mg Tablet 1 Tab PO DAILY Atarax* (Hydroxyzine HCl) 25 Mg Tablet 1 Tab PO BID Neurontin (Gabapentin) 300 Mg Capsule 1 Cap PO HS PRN Vitamin D3 (Cholecalciferol (Vitamin D3)) 50 Mcg (2000 Unit) Tablet 1 Tab PO DAILY Valsartan 80 Mg Tablet 1 Tab PO DAILY Omeprazole 20 Mg Capsule.dr 1 Cap PO DAILY Past Medical History Past Medical History Type 2 diabetes mellitus. Hypertension. Past Surgical History Surgical History Comment Three C sections. Past Social History Smoking: Other (The patient endorses that she has been smoking vape with vy johnson last time three days ago.) Alcohol Use: Occasionally (She endorses drinking an average of 20 beers per month since she was 23 years old.) Drug Use: None Lives with: Family Lives In: Home Occupation: unemployed ROS All Other Systems: Reviewed and Negative Exam Vitals: Physical exam: General: Well alert, well oriented, not confused, not agitated, not in acute distress, well cooperated during the physical. HEENT: Conjunctive are pink, sclerae clear, no icterus, pupil is equal in both sides, reactive to light, no ear discharge, no pharyngeal erythema or an edema. Neck: Supple, no JVD, no lymphadenopathy and thyromegaly. Chest: Equal air entry on both lungs, no additional sounds no rhonchi no wheezing at the moment. Cardiovascular: S1-S2 regular sinus rhythm and, regular rate, no gallops, no rubs, no murmurs Abdomen: No visible peristalsis, Bowel sounds present on auscultation, soft, nontender, no guarding, no rigidity Extremities: No obvious deformities, no pitting edema bilaterally, capillary refill intact, peripheral pulsations are intact on both sides Central Nervous System: No focal neurological deficits, no motor or sensory weakness in all 4 extremities, could move all 4 extremities, 2+ deep tendon reflexes, negative Babinski. Musculoskeletal: No joint swelling, deformities, inflammations, and no scoliosis and back tenderness Skin: Warm and dry, presence of crusts in the right knee. Counseling Services Smoking & Tobacco Cessation: 3-10 Minutes (I spent 12 minutes discussing smoking cessation with the patient including the risk of continuing to smoke: Lung cancer, stroke, heart attack, poor wound healing, increased in fascial wrinkling, cigarette smoke also leads a foul smell on clothing and fabrics, risk of MRSA skin infections. The expense of smoking cigarettes and how cigarettes have been scientifically engineered to be as addictive as humanly possible. The patient declined a nicotine patch at this time.) Advance Care Planning Advanced Care plannin - 30 Minutes (I spent a total of 17 minutes on reviewing various resuscitative measures/ACP with the patient at the time of admission. The patient has decided on a full code status.) Additional Plan Assessment and plan: A 44-year-old female patient came to hospital transferred from [facility] with chief complaint of chest pain. Chest pain: Possible unstable angina: Heart score: 4 points: The patient came to the hospital with chief complaint of chest pain. Chest CT angiogram performed at the other facility: Ruled out pulmonary embolism. Lexiscan their facility: Possible small area of ischemia at the distal anterolateral wall. Cardiology consult in a.m. for possible coronary angiogram. Fist troponin level within reference range. Follow-up trend troponins. Follow-up echocardiogram. Follow-up lipid panel. Follow-up hemoglobin A1c and TSH. Aspirin 81 mg daily. Atorvastatin 80 mg daily. Carvedilol 3.125 mg b.i.d. Nitroglycerin 0.4 mg sublingual p.r.n. Uncontrolled diabetes mellitus: Glucose levels 222, hemoglobin A1c 9.3. Hyperglycemia/hypoglycemia protocol in place. Lantus 23 units HS, medium-dose short-acting insulin protocol in place. Hypertension: Carvedilol 3.125 mg b.i.d. Lisinopril 10 mg daily. Mild hyponatremia: Sodium levels of 134. NS at 50 mL/hour. GERD: Pantoprazole 40 mg p.o. daily Code status: Full code DVT prophylaxis: Heparin Analgesia/sedation: Morphine Line/tube: PIV GI prophylaxis: Protonix Nutrition: NPO after midnight PT: Ordered Prognosis: Guarded Disposition: The patient will be admitted to PCU with telemetry. Nahun Walton Internal Medicine Resident [facility] Date of Service: October 02, 2024 Billing Provider: JORDON GONZALEZ Jr., FRANCO LUIS, RES October 02, 2024 21:35
[2024-10-02 22:00] VITALS: BP 161/95; PULSE 83; RESP 22; TEMP 97.9; O2SAT 99
[2024-10-02 22:00] LABS: BASOPHILS # (AUTO) 0.1 X10'3 (0-0.2); BASOPHILS % (AUTO) 1.4 % (0-1); EOSINOPHILS # (AUTO) 0.1 X10'3 (0-0.9); EOSINOPHILS % (AUTO) 1.5 % (0-6); HEMATOCRIT 46.2 % (35.0-45.0); HEMOGLOBIN 15.5 g/dl (12.0-16.0); LYMPHOCYTES # (AUTO) 2.7 X10'3 (1.1-4.8); LYMPHOCYTES % (AUTO) 29.8 % (21-51); MEAN CORPUSCULAR HEMOGLOBIN 29.6 PG (27.0-31.0); MEAN CORPUSCULAR HGB CONC 33.7 g/dL (33.0-36.5); MEAN CORPUSCULAR VOLUME 88.1 FL (78-98); MEAN PLATELET VOLUME 7.8 FL (7.4-10.4); MONOCYTES # (AUTO) 0.6 X10'3 (0-0.9); MONOCYTES % (AUTO) 6.7 % (2-12); NEUTROPHILS # (AUTO) 5.4 X10'3 (1.8-7.7); NEUTROPHILS % (AUTO) 60.6 % (42-75); PLATELET COUNT 320 X10'3 (140-440); RED BLOOD COUNT 5.25 X10'6 (4.20-5.60); RED CELL DISTRIBUTION WIDTH 12.7 % (11.5-14.5)
[2024-10-02 22:05] LABS: HEMOGLOBIN A1C 9.3 % (4.5-6.2)
[2024-10-02] MEDS ORDERED: dextrose 50%-water 50ml dispensing syringe IV PRN ×2 (22:05)
[2024-10-02] MEDS ORDERED: DEXTROSE 15 GM of carb/4 tabs (each vial/BOTTLE has 4 tablets) PO PRN ×2 (22:05)
[2024-10-02] MEDS ORDERED: glucagon, human recombinant 1mg kit SUBCUT PRN (22:05)
[2024-10-02 22:08] LABS: PROTHROMBIN TIME 10.4 SECONDS (9.0-12.0)
[2024-10-02 22:12] LABS: ALANINE AMINOTRANSFERASE 49 U/L (12-78); ALBUMIN 3.5 G/DL (3.4-5.0); ALBUMIN/GLOBULIN RATIO 0.8 (1.1-1.5); ALKALINE PHOSPHATASE 112 IU/L (46-116); ANION GAP 6 (8-16); ASPARTATE AMINO TRANSFERASE 26 U/L (10-37); BILIRUBIN,TOTAL 0.4 MG/DL (0.1-1.0); BLOOD UREA NITROGEN 16 MG/DL (7-18); BUN/CREATININE RATIO 18.8 (10.0-20.0); CALCIUM 8.8 MG/DL (8.5-10.1); CHLORIDE 99 MMOL/L (99-107); CREATININE 0.85 MG/DL (0.40-0.90); GLUCOSE 222 MG/DL (70-104); POTASSIUM 4.3 MMOL/L (3.5-5.1); SODIUM 134 MMOL/L (135-145); TOTAL CARBON DIOXIDE 28.8 MMOL/L (24-32); TOTAL PROTEIN 7.7 G/DL (6.4-8.2); eCRCL 75 ML/MIN; eGFR 72 ML/MIN
[2024-10-02] MEDS ORDERED: nitroGLYCERIN 0.4mg SUBLingual tab SL PRN (22:40)
[2024-10-02] MEDS ORDERED: AMLO2.5T2 PO (23:22)
[2024-10-02] MEDS ORDERED: LOSA-415 PO (23:22)
[2024-10-02] MEDS: insulin glargine (Lantus) pen - multi-dose SQ ONE (23:34)
[2024-10-02] MEDS: insulin Lispro (HumaLOG) vial - multi-dose SQ ONE (23:35)
[2024-10-02] MEDS: normal saline 1000ml 1,000 ML IV SCH (23:47)
[2024-10-02] MEDS: insulin glargine (Lantus) pen - multi-dose SQ SCH (23:55)
[2024-10-02] MEDS: INSULIN LISPRO 100 UNIT/ML INSULN.PEN MULTI-DOSE SQ SCH (23:55)
[2024-10-02] MEDS: amLODIPine 5mg tablet PO SCH (23:59)
--- NOTE | 2024-10-03 00:05 | RADIOLOGY REPORT ---
CHEST RADIOGRAPH Indication: sob Technique: Single frontal view of the chest was obtained COMPARISON: DI CHEST,SINGLE VIEW on DOS: 02/23/23 FINDINGS: Lines and Tubes: None Lungs: Clear Pleura: No effusion. No pneumothorax. Cardiomediastinal contours: Unremarkable IMPRESSION: No abnormality demonstrated.
[2024-10-03 01:28] VITALS: RESP 16; O2SAT 99
[2024-10-03 02:00] VITALS: BP 162/95; PULSE 84; RESP 14; TEMP 98.1; O2SAT 99
[2024-10-03] MEDS: ondansetron/PF 4mg/2ml inj IV PRN (03:01)
[2024-10-03 04:51] LABS: BASOPHILS # (AUTO) 0.1 X10'3 (0-0.2); BASOPHILS % (AUTO) 1.1 % (0-1); EOSINOPHILS # (AUTO) 0.2 X10'3 (0-0.9); EOSINOPHILS % (AUTO) 2.8 % (0-6); HEMATOCRIT 43.2 % (35.0-45.0); LYMPHOCYTES # (AUTO) 3.1 X10'3 (1.1-4.8); LYMPHOCYTES % (AUTO) 37.5 % (21-51); MEAN CORPUSCULAR HEMOGLOBIN 30.4 PG (27.0-31.0); MEAN CORPUSCULAR HGB CONC 34.8 g/dL (33.0-36.5); MEAN CORPUSCULAR VOLUME 87.5 FL (78-98); MEAN PLATELET VOLUME 7.9 FL (7.4-10.4); MONOCYTES # (AUTO) 0.6 X10'3 (0-0.9); MONOCYTES % (AUTO) 7.2 % (2-12); NEUTROPHILS # (AUTO) 4.3 X10'3 (1.8-7.7); NEUTROPHILS % (AUTO) 51.4 % (42-75); PLATELET COUNT 292 X10'3 (140-440); RED BLOOD COUNT 4.94 X10'6 (4.20-5.60); RED CELL DISTRIBUTION WIDTH 12.6 % (11.5-14.5); WHITE BLOOD COUNT 8.4 X10'3 (4.5-11.0)
[2024-10-03 05:19] LABS: ALANINE AMINOTRANSFERASE 43 U/L (12-78); ALBUMIN 3.5 G/DL (3.4-5.0); ALBUMIN/GLOBULIN RATIO 0.9 (1.1-1.5); ALKALINE PHOSPHATASE 87 IU/L (46-116); ANION GAP 7 (8-16); ASPARTATE AMINO TRANSFERASE 25 U/L (10-37); BILIRUBIN,TOTAL 0.7 MG/DL (0.1-1.0); BLOOD UREA NITROGEN 12 MG/DL (7-18); CALCIUM 8.5 MG/DL (8.5-10.1); CHLORIDE 101 MMOL/L (99-107); CREATININE 0.63 MG/DL (0.40-0.90); GLUCOSE 190 MG/DL (70-104); MAGNESIUM 1.8 MG/DL (1.5-2.4); SODIUM 135 MMOL/L (135-145); TOTAL CARBON DIOXIDE 26.8 MMOL/L (24-32); TOTAL PROTEIN 7.5 G/DL (6.4-8.2); eCRCL 101 ML/MIN; eGFR > 90 ML/MIN
[2024-10-03 06:00] VITALS: BP 140/96; PULSE 83; RESP 18; TEMP 97.3; O2SAT 96
[2024-10-03] MEDS ORDERED: INSULIN LISPRO 100 UNIT/ML INSULN.PEN MULTI-DOSE SQ SCH (07:00)
[2024-10-03] MEDS: atorvastatin 20mg tablet PO SCH (07:57)
[2024-10-03] MEDS: aspirin 81mg, enteric-coated 1 TAB TABLET.DR PO SCH (07:57)
[2024-10-03] MEDS: docusate sod 100mg capsule PO SCH (07:58)
[2024-10-03] MEDS: pantoprazole 40mg Tablet.DR PO SCH (07:59)
[2024-10-03] MEDS: carVEDilol 3.125mg tablet PO SCH (07:59)
[2024-10-03] MEDS: lisinopril 10 MG tablet PO SCH (07:59)
[2024-10-03] MEDS: K and/or MAG REPLACEMENT MC SCH (08:00)
[2024-10-03] MEDS: heparin, porcine 5000 units/ml vial SQ SCH (08:00)
[2024-10-03 08:30] VITALS: RESP 18; O2SAT 97
[2024-10-03] MEDS ORDERED: nitroGLYCERIN 0.4mg SUBLingual tab SL PRN (08:55)
[2024-10-03] MEDS ORDERED: aminophylline 500mg/20ml vial IV PRN (08:55)
[2024-10-03] MEDS ORDERED: regadenoson 0.4mg/5ml syringe IV PRN (08:55)
[2024-10-03] MEDS ORDERED: metoprolol tartrate 1mg/ml inj IV PRN (08:55)
[2024-10-03] MEDS ORDERED: amLODIPine 5mg tablet PO SCH (10:25)
[2024-10-03] MEDS ORDERED: losartan 25mg tablet PO PRN (10:25)
[2024-10-03 11:00] VITALS: BP 127/82; PULSE 75; RESP 18; TEMP 97.3; O2SAT 98
[2024-10-03] MEDS: EMPAGLIFLOZIN 25 MG TABLET PO SCH (11:50)
[2024-10-03] MEDS ORDERED: metFORMIN 500mg tablet PO SCH (12:00)
[2024-10-03 15:00] VITALS: BP 138/67; PULSE 83; RESP 19; TEMP 97.7; O2SAT 97
--- NOTE | 2024-10-03 15:07 | DISCHARGE SUMMARY ---
Discharge Summary Providers to CC ~ Discharge Summary Admission Diagnosis: Chest pain Hospital Course DATE OF ADMISSION: 10/02/2024 DATE OF DISCHARGE: 10/03/2024 Discharge Diagnosis\Comment: Chest pain diabetes out of control hypertension hyperlipidemia Operations\Procedures: None Consultants: None Complications: None Condition on DC: Stable New Medications: Metformin Hcl (Metformin Hcl) 500 Mg Tablet 1 TAB PO Q12H for 30 Days, #60 TAB 0 Refills Amlodipine Besylate (Amlodipine Besylate) 5 Mg Tablet 10 MG PO DAILY for 30 Days, #60 TAB Aspirin (Ecotrin*) 81 Mg Tablet.dr 1 TAB PO DAILY for 30 Days, #30 TAB.SR Atorvastatin Calcium (Atorvastatin Calcium) 20 Mg Tablet 80 MG PO DAILY for 30 Days, #30 TAB Carvedilol (Carvedilol) 3.125 Mg Tablet 3.125 MG PO BID for 30 Days, #60 TAB Empagliflozin (Jardiance) 25 Mg Tablet 25 MG PO DAILY for 30 Days, #30 TAB Continued Medications: Losartan Potassium* (Cozaar*) 25 Mg Tablet 2 TAB PO DAILY PRN for high blood pressure for 30 Days, #30 TAB Discontinued Medications: Amlodipine* (Norvasc*) 2.5 Mg Tablet 2 TAB PO DAILY for 30 Days, #30 TAB Discharge Summary: Patient is a 44-year-old transferred to us from [facility] for positive stress test with History of Present Illness 44-year-old female patient with past medical history of hypertension, type 2 diabetes mellitus came to the hospital transferred from [facility] with chief complaint of chest pain. The patient reports that approximately two days ago (started like), the patient experienced chest pain, retrosternal, pressure type, without radiation, scaled as an 8/10 in intensity which started approximately on Sunday at 6:00 a.m., did not go away until Sunday 2:00 a.m. currently the patient denies any chest pain, shortness of breath, palpitations. Associated to her chest pain on Sunday the patient also endorses sweating, mild headache, which prompted her to drive to [facility]. The patient reports that she had experienced a similar episode two weeks ago where it was a short episode less than 1 minute which resolved by itself. This time it last for a long period of time which prompted her to go to the hospital. At [place] the patient underwent CT angiogram of the chest ruling out pulmonary embolism and aortic dissection. EKG and cardiac enzyme test were negative for acute coronary syndrome. However, a nuclear stress test indicated a possible small area of ischemia in the distal anterior lateral wall, while in echocardiogram showed normal EF, ulgb-hh-rhyvoiix left ventricular hypertrophy and grade 2 diastolic dysfunction. The patient was transferred for further management with cardiology. Exam patient is alert and oriented x4 in no acute distress lying down comfortably speaking in full sentences HEENT normocephalic nontraumatic head PERRLA. EOMI. CVS first and second heart sounds are regular rate rhythm no murmurs gallops or rubs Respiratory system is clear to auscultate bilaterally no rales rhonchi crackles or wheezing Abdomen is soft obese bowel sounds are positive nontender nondistended Extremities no clubbing cyanosis or edema Hospital course patient is a pleasant 44-year-old with diabetes out of control with an elevated hemoglobin A1c of nine. Patient has been maximized under medications advised on a change of diet to a carb consistent diet. Patient is stress test is minimally positive. She was seen in consultation by Dr. Ward/Roxanna. No further cardiac workup is necessary at this time per Cardiology. Patient has been noncompliant with medications for the last two years because of her lapse in insurance prior to that she was on insulin she does not remember what kind or how many units. Her hemoglobin A1c is 9.2 I think she can be managed as an outpatient on oral hypoglycemic agents. To avoid any hypoglycemia I am going to start her on metformin and Jardiance and advised her PCP to adjust medications and add medications. Patient understands this plan of care she does have a PCP now in his being discharged home patient is being discharged home with advice for close follow up as an outpatient. *Problems/Diagnosis: (1) Hyperlipidemia (2) Diabetes 1.5, managed as type 2 (3) Hypertension Status: Chronic Total Time Spent on D/C: > 30 Minutes Date of Service: October 03, 2024 Billing Provider: ESTHER ULLOA MD Common Visit Codes: 36574-SLX/OBS DISCH DAY >30min ESTHER ULLOA MD October 03, 2024 15:07
[2024-10-03] MEDS ORDERED: METF-436 PO (15:16)
[2024-10-03] MEDS ORDERED: EMPA25TA PO (15:16)
[2024-10-03] MEDS ORDERED: CARV-164 PO (15:16)
[2024-10-03] MEDS ORDERED: ATOR20TA66 PO (15:16)
[2024-10-03] MEDS ORDERED: NOR5T PO (15:16)
[2024-10-03] MEDS ORDERED: ASPI-1071 PO (15:16)
--- NOTE | 2024-10-03 15:30 | CONSULTATION REPORT ---
CHAS VELASQUEZ [employer]CH[employer] HANDYMAN 10/03/24 1530: History of Present Illness Providers to CC CC: MICHAEL MARCELO MD ~ Reason for Admit\Admit Dx: Cardiology consultation Refering MD: None History of Present Illness This is a 44-year-old female with past medical history significant for hypertension, diabetes mellitus and tobacco use. She originally presented to [facility] secondary to chest pain that was substernal and described as pressure. He had associated shortness for breath and diaphoresis. She has not been on her medications for about a year she lost her insurance. Now has insurance again and is getting back on her blood pressure and diabetes regimen. At [facility] she underwent an echocardiogram and stress test. The stress test was read as positive and she was sent for further evaluation and management. Of note patient reports chest pain has resolved. She has had no shortness a breath. Also, last weekend she went on a hike with no symptoms. Denies dizziness, lightheadedness or syncope. No current chest pain or shortness for breath. No orthopnea or PND. Was asked, but otherwise denies review of systems. Allergies: Coded Allergies: Penicillins (Verified Allergy, Unknown, HIVES, 02/16/23) Home Medications Home Medications Active Reported Cozaar* (Losartan Potassium) 25 Mg Tablet 2 Tab PO DAILY PRN 30 Days Norvasc* (Amlodipine Besylate) 2.5 Mg Tablet 2 Tab PO DAILY 30 Days Past Medical History Medical History Comment Hypertension Diabetes Tobacco use Obesity Past Social History Social History Comment Vapes nicotine products. Denies drugs or alcohol use. Physical Exam Last Vital Signs Recorded: RN Vital Signs have been reviewed: Yes, Temperature: 97.3, Source: Temporal, Heart Rate: 75, Respiratory Rate: 18, BP: 127/82, Pulse Oximetry: 98, Weight: 118.000 Physical Exam General: Awake, alert, oriented. No apparent distress Neck: Supple. Normal range of motion. No JVD Respiratory: Lungs are clear to auscultation bilaterally. No respiratory distress. Chest: Normal shape and size. No accessory muscle use. Cardiovascular: Regular rate and rhythm. S1-S2. No murmur, gallop, rub. Extremities: No lower extremity edema, cyanosis or clubbing. Neurologic: Alert and oriented x4. Nonfocal Psychiatric: Normal mood and affect. Skin: Normal color. Warm and dry. Review of Systems ROS Patient complains of chest pain with associated diaphoresis and shortness for breath as described in HPI. Otherwise, review of systems is unremarkable. Results EKG EKG Sinus rhythm abnormal R-wave progression. Echocardiogram Echocardiogram Echocardiogram completed at [facility] demonstrates LVEF 55-60%. [id number] LVH. Grade 2 diastolic dysfunction. Mild left atrial dilation. Cardiac Stress Test Cardiac Stress Test Stress test read by transferring facility small area of ischemia distal anterolateral wall. Reviewed by screw machine hand, Dr. Radford. Possible breast artifact versus ischemia. Diagram Lab Result Diagram: 10/03/2443410/03/24434 Assessment/Plan Additional Plan This is a 44-year-old female who presents secondary to chest pain as a transfer from [facility]. The following is her problem list: Angina Stress test with possible anterolateral ischemia versus breast artifact. Echocardiogram with preserved EF and no wall motion abnormalities High sensitivity troponins negative Given questionable stress test and nonadherence with medication regimen recommend medical management. If continued chest pain would consider angiogram at that time. --continue beta-karla with carvedilol 3.125 mg b.i.d. --continue amlodipine 10 mg daily --continue lisinopril 10 mg daily --recommend high-intensity statin to keep LDL less than 55 --aspirin 81 mg daily Uncontrolled diabetes mellitus with hemoglobin A1c of nine point two at [facility] --discussed medication adherence. Diabetes management per hospitalist service Hypertension --continue amlodipine and lisinopril as above Supervising MD Supervising Physician: SOPHIE Owen MD 10/03/24 1621: History of Present Illness Providers to CC CC: MICHAEL MARCELO MD Allergies: Coded Allergies: Penicillins (Verified Allergy, Unknown, HIVES, 02/16/23) Results Diagram Lab Result Diagram: 10/03/2443410/03/24434 Assessment/Plan Additional Plan Agree with the above note by the nurse practitioner. The stress test images were reviewed by myself and seemed to be questionable for possible artifact. I had a lengthy discussion with the patient in regards to her symptoms. She states she was able to recently [place] last week without any symptoms. She denies any chest pain, pressure, tightness, discomfort, heaviness, or shortness of breath. Thus recommend medical management. At this point, I have recommended that she show/endorse compliance with her diabetic and antihypertensive regimen. If she shows compliance and still continues to have symptoms, at that point can consider to proceed with a coronary angiogram for definitive evaluation/assessment. The above was discussed at length with the patient and her family who were at bedside. They all verbalized understanding and were in agreement with the above-mentioned plan. CHAS VELASQUEZ NP October 03, 2024 15:30 SOPHIE RADFORD MD October 03, 2024 16:21
--- NOTE | 2024-10-03 16:25 | CARDIOLOGY REPORT ---
APPROVED REPORT EXAM: Comprehensive 2D, Doppler, and color-flow Echocardiogram. Patient Location: 3024 B Blood Pressure: 127/82 mmHg Heart Rate: 69 bpm Rhythm: SINUS Indications CHEST PAIN HYPERTENSION DIABETES MELLITUS SHORTNESS OF BREATH Foundry Helper: Tee Ward MD (consult) Previous echo: 02/24/23 [facility] (EF 60-65%, mod LAE, trace to mild MR, trace TR) 2D Dimensions RVDd 3.5 cm IVSd 1.6 (0.7-1.1cm) LVDd 4.2 cm PWd 1.7 (0.7-1.1cm) IVSs 2.0 (0.8-1.2cm) LVDs 2.9 (2.5-4.0cm) PWs 2.1 (0.8-1.2cm) LVOT Diameter 2.39 (1.8-2.4cm) LVEF(%) 61.6 (>50%) Ao Asc Diam.3.46 cm FS (%) 32.8 % SV 49.6 ml CO 4.1 L/min M-Mode Dimensions Left Atrium(MM) 3.77 (2.5-4.0cm) Aortic Root 2.96 (2.2-3.7cm) Aortic Cusp Exc 1.95 (1.5-2.0cm) MV EPSS 0.6 (<0.5cm) Aortic Valve AoV Peak Carl. 170.3 cm/s AoV VTI 27.3 cm AO Peak GR. 11.6 mmHg AO Mean GR. 6 mmHg LVOT VTI 18.44 cm LVOT Peak Carl. 108.8 cm/s LEEANNA(VTI)/BSA 3.02 cm2/m2 LEEANNA (VTI) 3.02 cm2 Mitral Valve MV E Velocity 77.7 cm/s MV Peak Gr. 3 mmHg MV DECEL TIME 320 ms MV A Velocity 86.2 cm/s MV PHT 56 ms E/A Ratio 0.9 MVA (PHT) 3.93 cm2 MV VMax85.3 cm/s TDI Medial E' P. V 7.04 cm/s E/Medial E' 11.0 Pulmonary Vein S1 Velocity 49.2 cm/s D2 Velocity 30.8 cm/s PVa Pqwreung10.0 cm/s PVa Dtzclonx78 msec LEFT VENTRICLE Normal LV size and function. Moderate concentric hypertrophy. LVEF is 60-65%. RIGHT VENTRICLE RV is mildly dilated in size with normal function. ATRIA LA size is normal. AORTIC VALVE Trileaflet AV appears mildly sclerotic without stenosis or insufficiency. MITRAL VALVE Mild MV annular calcification without stenosis. Trace regurgitation. TRICUSPID VALVE TV appears structurally normal with trace regurgitation. PULMONIC VALVE Normal PV without stenosis, physiologic insufficiency. GREAT VESSELS Aortic root is normal in size. Ascending aorta is normal in size. PERICARDIUM Normal pericardium. No effusion. Other Information Study Quality: Adequate Conclusion Normal LV size and function. Moderate concentric hypertrophy. LVEF is 60-65%. RV is mildly dilated in size with normal function. LA size is normal. Trileaflet AV appears mildly sclerotic without stenosis or insufficiency. Mild MV annular calcification without stenosis. Trace regurgitation. TV appears structurally normal with trace regurgitation. Normal pericardium. No effusion.
[2024-10-03] MEDS ORDERED: insulin glargine (Lantus) pen - multi-dose SQ SCH (21:00)
== END 2024-10-03 16:40 | disposition home or self-care (01) | DRG 198 ==
LOC: PCU 3S 19:24
PROVIDERS: ADMIT Internal Medicine; ATTEND Internal Medicine
DX: I20.0 Unstable angina (principal); E87.1 Hypo-osmolality and hyponatremia; E11.65 Type 2 diabetes mellitus with hyperglycemia; E66.9 Obesity, unspecified; E78.5 Hyperlipidemia, unspecified; F17.290 Nicotine dependence, other tobacco product, uncomplicated; I10 Essential (primary) hypertension; Z59.71 Insufficient health insurance coverage; Z79.82 Long term (current) use of aspirin; Z79.84 Long term (current) use of oral hypoglycemic drugs; Z79.899 Other long term (current) drug therapy; Z91.148 Patient's other noncompliance with medication regimen for other reason; Z68.41 Body mass index [BMI] 40.0-44.9, adult
CPT/HCPCS: 36415; 71045; 80053; 82948; 83036; 83735; 84443; 84484; 85025; 85610; 87081; 93306; G0378; J1815; J2405; J7030

== ENCOUNTER 2024-10-25 10:03 | Inpatient (IN) | payer MEDICAID ==
[~2024-10-25] VITALS: Ht 165.1 cm; Wt 116.0 kg
[~2024-10-25 10:03] MED LIST changes: -AMLO-708 PO; +ASPI-1071 PO; -ASPI-1265 PO; +ATOR20TA66 PO; +CARV-164 PO; -CHOL20003 PO; +EMPA25TA PO; -GABA300C PO; -HYDR-3686 PO; +LOSA-415 PO; +METF-436 PO; +NOR5T PO; -OMEP20CA16 PO; -SUMA25TA35 PO; -VALS80TA32 PO
--- NOTE | 2024-10-25 10:15 | ELECTROCARDIOGRAPH REPORT ---
[facility] Test Date: 2024-10-25 Test Time: 10:10:03 Pat Name: OLINDA YUAN Department: EMERGENCY ROOM Room: Gender: F Mechanical Cad Designer: PM : 1980 Requested By: DHRUV CHAMORRO Order Number: [id number] Reading MD: Measurements Intervals [place] Rate: 69 P: 29 RI: 148 QRS: -17 QRSD: 102 T: 64 QT: 425 QTc: 456 Interpretive Statements Sinus rhythm Probable left ventricular hypertrophy Please click the below link to view image of tracing.
--- NOTE | 2024-10-25 10:21 | Physician Documentation ---
History of Present Illness General Chief Complaint: Chest Pain Stated Complaint: CP Time Seen by MD: 10:13 Primary Medical Doctor: None History of Present Illness Initial Comments The patient is a 44-year-old female with a history of hypertension, type 2 diabetes mellitus transferred here from [facility] for chest pain. The pain began earlier this morning and is currently about 7/10. She reportedly had an EKG that showed LVH. Initial troponin and D-dimer at [address] were negative. She was given nitroglycerin. She did see Dr. Anderson about a month ago though no cardiac catheterization was done had reportedly been off her medications for some time). Currently, she reports taking her medications. Medication Reconciliation Allergies: Coded Allergies: Penicillins (Verified Allergy, Unknown, HIVES, 10/25/24) Scheduled Amlodipine Besylate (Amlodipine Besylate), 10 MG PO DAILY Aspirin (Ecotrin*), 1 TAB PO DAILY Atorvastatin Calcium (Atorvastatin Calcium), 80 MG PO DAILY Carvedilol (Carvedilol), 3.125 MG PO BID Empagliflozin (Jardiance), 25 MG PO DAILY Metformin Hcl (Metformin Hcl), 1 TAB PO Q12H Scheduled PRN Losartan Potassium* (Cozaar*), 2 TAB PO DAILY PRN for high blood pressure, (Reported) Past Medical History Past Medical History: Hypertension, *GI/HEPATOBILIARY*, Diabetes, Chronic Pain Past Surgical History: Smoking: Other Alcohol Use: Occasionally Drug Use: none Lives with: Family Lives In: Home Occupation: unemployed Review of Systems ROS Constitutional: Denies chills, fatigue, fever, weight gain or weight loss. HEENT: Denies hearing loss, sinus pressure or visual changes. Respiratory: Denies cough, shortness of breath or wheezing. Cardiovascular: Chest pain. Gastrointestinal: Denies abdominal pain, blood in stool, constipation, diarrhea, heartburn, loss of appetite, nausea or vomiting. Genitourinary: Denies painful urination (dysuria), excessive amount of urine (polyuria) or urinary frequency. Metabolic/Endocrine: Denies cold intolerance, heat intolerance, excessive thirst (polydipsia) or excessive hunger (polyphagia). Neurological: Denies dizziness, extremity numbness, extremity weakness, headaches, seizures or tremors. Psychiatric: Denies anxiety or depression. Integumentary: Denies breast discharge, breast lump, hives, mole change(s), rash or skin lesion. Musculoskeletal: Denies back pain, joint pain, joint swelling or neck pain. Hematologic: Denies easily bleeding, easily bruises, lymphedema or issues with blood clots. Immunologic: Denies food allergies or seasonal allergies. Physical Exam Physical Exam Vital Signs: Temperature: 96.8, Source: Temporal, Heart Rate: 72, Respiratory Rate: 18, BP: 128/88, Pulse Oximetry: 99, Weight: 116.000 Oxygen Flow Rate: 0 Physical Exam Physical Exam Vitals and nursing note reviewed. Constitutional: General: Patient is awake, alert, oriented x 4 in no acute distress and well appearing. Speech is clear and lucid. Appearance: Overweight. Patient is not ill-appearing, toxic-appearing or diaphoretic. HENT: Head: Normocephalic and atraumatic. Mouth/Throat: Mouth: Mucous membranes are moist. Pharynx: Oropharynx is clear. Eyes: General: No scleral icterus. Extraocular Movements: Extraocular movements intact. Pupils: Pupils are equal, round, and reactive to light. Cardiovascular: Rate and Rhythm: Normal rate and regular rhythm. Heart sounds: No murmur heard. Pulmonary: Effort: No respiratory distress. Breath sounds: No wheezing, rhonchi or rales. Abdominal: General: There is no distension. Palpations: There is no fluid wave, hepatomegaly or mass. Tenderness: There is no abdominal tenderness. There is no guarding. Musculoskeletal: General: No swelling or deformity. Skin: Coloration: Skin is not jaundiced. Findings: No erythema or rash. Neurological: Mental Status: Patient is alert. Progress Results/Orders Results/Orders Orders - DHRUV CHAMORRO MD Chest,Single View (10/25/24 10:47) Page Hospitalist (10/25/24 12:07) Completed Orders - DHRUV CHAMORRO MD Electrocardiogram (10/25/24 ) CMP (10/25/24 10:47) Cbc/Diff (10/25/24 10:47) Hs Troponin I W Calculations (10/25/24 10:47) D-Dimer (10/25/24 10:47) MG (10/25/24 10:47) PBNP (10/25/24 10:47) Chest,Single View (10/25/24 10:47) Pt Inr (10/25/24 10:47) Drug Screen, Urine (10/25/24 10:47) Morphine 2mg/Ml Inj. (Morphine Inj.) (10/25/24 10:50) Ondansetron Inj. (Zofran 4mg/2ml Vial) (10/25/24 10:50) Medications Received in ER Medications (Trade) Dose Ordered Sig/Babs Route PRN Reason Start Time Stop Time Status Last Admin Dose Admin (morphine inj.) 2 mg ONCE ONCE IV 10/25/24 10:50 10/25/24 10:51 DC 10/25/24 11:10 2 MG (Zofran 4mg/2ml vial) 4 mg ONCE ONCE IV 10/25/24 10:50 10/25/24 10:51 DC 10/25/24 11:10 4 MG Vital Signs 10/25/24 10/25/24 10/25/24 10:04 11:00 11:10 Temp 96.8 Pulse 72 74 Resp 18 14 18 B/P (MAP) 128/88 144/79 (100) Pulse Ox 99 98 O2 Flow Rate 0 0 Laboratory Tests Test 10/25/24 10:59 10/25/24 11:02 Urine Opiates Screen Negative Urine Methadone Screen Negative Urine Fentanyl Screen Negative Urine Barbiturates Screen Negative Urine Phencyclidine Screen Negative Urine Amphetamines Screen Negative Urine Benzodiazepines Screen Negative Urine Cocaine Screen Negative Urine Cannabinoids Screen Negative Drug Screen Comment White Blood Count 8.4 Red Blood Count 4.87 Hemoglobin 14.5 Hematocrit 42.4 Mean Corpuscular Volume 87.0 Mean Corpuscular Hemoglobin 29.8 Mean Corpuscular Hemoglobin Concent 34.2 Red Cell Distribution Width 12.5 Platelet Count 292 Mean Platelet Volume 8.1 Neutrophils (%) (Auto) 59.8 Lymphocytes (%) (Auto) 28.9 Monocytes (%) (Auto) 7.4 Eosinophils (%) (Auto) 3.1 Basophils (%) (Auto) 0.8 Neutrophils # (Auto) 5.0 Lymphocytes # (Auto) 2.4 Monocytes # (Auto) 0.6 Eosinophils # (Auto) 0.3 Basophils # (Auto) 0.1 CBC Comment Prothrombin Time 10.8 INR International Normalized Ratio 1.1 D-Dimer 0.24 D-Dimer Comment Coagulation Comments Sodium Level 141 Potassium Level 3.8 Chloride Level 104 Carbon Dioxide Level 28.0 Anion Gap 9 Blood Urea Nitrogen 14 Creatinine 0.67 Estimated GFR/1.73 m2 > 90 BUN/Creatinine Ratio 20.9 H Glucose Level 156 H Calcium Level 8.6 Magnesium Level 1.9 Total Bilirubin 0.9 Aspartate Amino Transf (AST/SGOT) 24 Alanine Aminotransferase (ALT/SGPT) 43 Alkaline Phosphatase 75 Troponin I High Sensitivity 12 Pro-B-Type Natriuretic Peptide 33 Total Protein 7.5 Albumin 3.8 Globulin 3.7 Albumin/Globulin Ratio 1.0 L Chemistry Comments Medical Decision Making Findings This 44-year-old female presents with chest pain, referred here from [facility]. She did see Dr. Anderson about a month ago and he recommended that if the pain recurs she might need cardiac catheterization. EKG shows left ventricular hypertrophy but no acute changes. She was treated with nitroglycerin at [facility]. I have given her some morphine here she described her pain as 7/10. She will require admission. Departure Disposition: ADMITTED INPATIENT Admitted to Inpatient Unit: to hospitalist Admission Level of Care: PCU with Tele Impression: Primary Impression: Chest pain Condition: Stable Referrals: NO PRIMARY CARE PROVIDER (PCP) Signature Scribe Signature: . Attestation: . DHRUV CHAMORRO MD Oct 25, 2024 10:21
[2024-10-25] MEDS: morphine 2 MG/ML inj. syringe IV ONE (11:10)
[2024-10-25] MEDS: ondansetron/PF 4mg/2ml inj IV ONE (11:10)
[2024-10-25 11:17] LABS: BASOPHILS # (AUTO) 0.1 X10'3 (0-0.2); BASOPHILS % (AUTO) 0.8 % (0-1); EOSINOPHILS # (AUTO) 0.3 X10'3 (0-0.9); EOSINOPHILS % (AUTO) 3.1 % (0-6); HEMATOCRIT 42.4 % (35.0-45.0); HEMOGLOBIN 14.5 g/dl (12.0-16.0); LYMPHOCYTES # (AUTO) 2.4 X10'3 (1.1-4.8); LYMPHOCYTES % (AUTO) 28.9 % (21-51); MEAN CORPUSCULAR HEMOGLOBIN 29.8 PG (27.0-31.0); MEAN CORPUSCULAR HGB CONC 34.2 g/dL (33.0-36.5); MEAN PLATELET VOLUME 8.1 FL (7.4-10.4); MONOCYTES # (AUTO) 0.6 X10'3 (0-0.9); MONOCYTES % (AUTO) 7.4 % (2-12); NEUTROPHILS % (AUTO) 59.8 % (42-75); PLATELET COUNT 292 X10'3 (140-440); RED BLOOD COUNT 4.87 X10'6 (4.20-5.60); RED CELL DISTRIBUTION WIDTH 12.5 % (11.5-14.5); WHITE BLOOD COUNT 8.4 X10'3 (4.5-11.0)
[2024-10-25 11:27] LABS: D-DIMER 0.24 MG/L FEU (0-0.50); INR 1.1 INR; PROTHROMBIN TIME 10.8 SECONDS (9.0-12.0)
[2024-10-25 11:30] LABS: ALANINE AMINOTRANSFERASE 43 U/L (12-78); ALBUMIN 3.8 G/DL (3.4-5.0); ALKALINE PHOSPHATASE 75 IU/L (46-116); ANION GAP 9 (8-16); ASPARTATE AMINO TRANSFERASE 24 U/L (10-37); BILIRUBIN,TOTAL 0.9 MG/DL (0.1-1.0); BLOOD UREA NITROGEN 14 MG/DL (7-18); BUN/CREATININE RATIO 20.9 (10.0-20.0); CALCIUM 8.6 MG/DL (8.5-10.1); CHLORIDE 104 MMOL/L (99-107); CREATININE 0.67 MG/DL (0.40-0.90); GLUCOSE 156 MG/DL (70-104); POTASSIUM 3.8 MMOL/L (3.5-5.1); SODIUM 141 MMOL/L (135-145); TOTAL PROTEIN 7.5 G/DL (6.4-8.2); eCRCL 95 ML/MIN; eGFR > 90 ML/MIN
[2024-10-25 11:38] LABS: MAGNESIUM 1.9 MG/DL (1.5-2.4); PRO BRAIN NATRIURETIC PEPTIDE 33 PG/ML (0-125)
[2024-10-25 12:03] LABS: URINE AMPHETAMINE SCREEN NEGATIVE (Neg); URINE BARBITUATE SCREEN NEGATIVE (Neg); URINE BENZODIAZEPINES SCREEN NEGATIVE (Neg); URINE CANNABINOID SCREEN NEGATIVE (Neg); URINE COCAINE SCREEN NEGATIVE (Neg); URINE METHADONE SCREEN NEGATIVE (Neg); URINE OPIATE SCREEN NEGATIVE (Neg); URINE PHENCYCLIDINE SCREEN NEGATIVE (Neg)
--- NOTE | 2024-10-25 12:27 | RADIOLOGY REPORT ---
CHEST RADIOGRAPH Indication: CP Technique: Single frontal view of the chest was obtained COMPARISON: DI CHEST,SINGLE VIEW on DOS: 10/02/24, DI CHEST,SINGLE VIEW on DOS: 02/23/23, DI CHEST,SIN GLE VIEW on DOS: 02/16/23, CHEST,SINGLE VIEW on DOS: 05/24/21 FINDINGS: Lines and Tubes: None Lungs: Clear Pleura: No effusion. No pneumothorax. Cardiomediastinal contours: Unremarkable Bones: Unremarkable IMPRESSION: 1. No acute disease.
[2024-10-25] MEDS ORDERED: magnesium sulf-water 4G/100mL 100 ML IV PRN (12:40)
[2024-10-25] MEDS ORDERED: mag hydrox/Alum hydrox/simeth 30ml oral suspension PO PRN (12:40)
[2024-10-25] MEDS ORDERED: acetaminophen 325mg tablet PO PRN ×2 (12:40)
[2024-10-25] MEDS ORDERED: magnesium sulf-water 2g/50mL 50 ML IV PRN (12:40)
[2024-10-25] MEDS ORDERED: potassium Cl 20 mEq SR tablet PO PRN ×2 (12:40)
[2024-10-25] MEDS ORDERED: HYDROcodone/acetaminophen 10/325mg tab PO PRN (12:40)
[2024-10-25] MEDS ORDERED: magnesium hydroxide 30ml (MOM) UD suspension PO PRN (12:40)
[2024-10-25] MEDS ORDERED: magnesium Cl slow-release 64mg tablet PO PRN (12:40)
[2024-10-25] MEDS ORDERED: HYDROcodone/acetaminophen 5mg/325mg tablet PO PRN (12:40)
[2024-10-25] MEDS ORDERED: morphine 2 MG/ML inj. syringe IV PRN ×2 (12:40)
[2024-10-25] MEDS ORDERED: nitroGLYCERIN 0.4mg SUBLingual tab SL PRN ×2 (12:40→12:50)
[2024-10-25] MEDS ORDERED: potassium Cl 40MEQ/1/2NS 520ml 520 ML IV PRN (12:40)
[2024-10-25] MEDS ORDERED: aminophylline 500mg/20ml vial IV PRN (12:50)
[2024-10-25] MEDS ORDERED: metoprolol tartrate 1mg/ml inj IV PRN (12:50)
[2024-10-25] MEDS: losartan 50mg tablet PO ONE (13:07)
[2024-10-25] MEDS: aspirin 81mg, enteric-coated 1 TAB TABLET.DR PO ONE (13:08)
[2024-10-25 13:12] LABS: CHOLESTEROL 75 MG/DL (0-200); HDL CHOLESTEROL 38 MG/DL (35-60); LDL CHOLESTEROL 27 MG/DL (50-100); TRIGLYCERIDES 57 MG/DL (20-135)
[2024-10-25 13:18] LABS: URINE HCG NEGATIVE (NEG)
[2024-10-25] MEDS ORDERED: DEXTROSE 15 GM of carb/4 tabs (each vial/BOTTLE has 4 tablets) PO PRN ×2 (14:05)
[2024-10-25] MEDS ORDERED: glucagon, human recombinant 1mg kit SUBCUT PRN (14:05)
[2024-10-25] MEDS ORDERED: dextrose 50%-water 50ml dispensing syringe IV PRN ×2 (14:05)
--- NOTE | 2024-10-25 14:31 | HISTORY AND PHYSICAL ---
History & Physical Providers to CC ~ History of Present Illness Reason for Admit\Complaint: r/o ACS History of Present Illness Omayra Fu is a 44-year-old female with a past medical history of hypertension, hyperlipidemia, class III obesity, NIDDM, TIA who was transferred from [facility] for evaluation of chest pain that started today. Patient describes medial nonradiating chest pain that is burning quality. Patient denies prior [place]/CAD, CVA, cardiac arrhythmia, DVT/PE, or GIB. Patient denies palpitations, shortness of breath, abdominal pain, n/v/d. Diagnostic findings including troponins and D-dimer at the outside facility and at [facility] ED are unremarkable. EKG shows sinus rhythm at a rate of [address]- elevation/depression. TTE complete on 10/03/24 revealed moderate concentric hypertrophy, LVEF 60-65%, no significant VHD. Patient does not have a intelligence officer. Given presentation and history, patient is to be admitted for further workups and treatment. Allergies: Coded Allergies: Penicillins (Verified Allergy, Unknown, HIVES, 10/25/24) Home Medications Home Medications Active Metformin Hcl 500 Mg Tablet 1 Tab PO Q12H 30 Days Jardiance (Empagliflozin) 25 Mg Tablet 25 Mg PO DAILY 30 Days Ecotrin* (Aspirin) 81 Mg Tablet.dr 1 Tab PO DAILY 30 Days Amlodipine Besylate 5 Mg Tablet 10 Mg PO DAILY 30 Days Carvedilol 3.125 Mg Tablet 3.125 Mg PO BID 30 Days Atorvastatin Calcium 20 Mg Tablet 80 Mg PO DAILY 30 Days Reported Cozaar* (Losartan Potassium) 25 Mg Tablet 2 Tab PO DAILY PRN 30 Days Past Medical History Past Medical History Hypertension Hyperlipidemia NIDDM TIA Class III obesity Past Surgical History Surgical History Comment x 3 Past Social History Social History Comment Alcohol: Denies Tobacco: Former smoker, quit 1 month ago, 20 pack year history Illicit drug use: Denies Living situation: Lives at home with friends and family ROS ROS Other than positives in HPI, all 14 review of systems are negative Exam Vitals: Vital Signs Date Time Temp Pulse Resp B/P (MAP) Pulse Ox O2 Delivery O2 Flow Rate FiO2 10/25/24 13:00 78 16 134/78 (96) 99 0 10/25/24 10:04 96.8 General: A&Ox 3, NAD, morbidly obese HEENT: Normocephalic, PERRLA Neck: Supple, trachea midline, no JVD Chest: Clear to auscultation bilaterally Cardiovascular: RRR, S1&S2 Abdomen: Soft and nontender Extremities: No cyanosis/clubbing/or edema Central Nervous System: CN II-XII intact, no focal deficits Musculoskeletal: No paraspinal muscle tenderness, no muscle spasm Skin: Warm and intact Diagnostic Data Last Recorded Lab Results: 10/25/24 1102 10/25/24 1102 Diagnostic Data: Laboratory Tests Test 10/25/24 11:02 Prothrombin Time 10.8 SECONDS (9.0-12.0) INR International Normalized Ratio 1.1 INR D-Dimer 0.24 MG/L FEU (0-0.50) D-Dimer Comment Coagulation Comments Additional Plan # Unstable angina vs GERD vs anxiety disorder- rule out ACS # Hyperlipidemia # Hypertension # NIDDM # TIA # Class III obesity -trop negative, d-dimer negative, CXR negative, EKG shows sinus rhythm at a rate of [address]-elevation/depression, LDL 27, A1c 9.3% (10/02/24), TTE (10/03/24) moderate concentric hypertrophy, LVEF 60-65%, no significant VHD -prn nitroglycerin, start hyper/hypoglycemic protocol, continue home statin, aspirin, home antihypertensives, PPI -HEART score 4, follow Lexiscan DVT/VTE prophylaxis: heparin Code status: Full code I spent a total of 35 minutes discussing Advanced Care Planning measures with the patient. Advance care planning: Discussed with patient the importance of advance care planning in case of emergent situation. We discussed various resuscitative measures/ ACP with the patient at the time of admission. Patient voiced understanding and patient has decided on a full code status. Date of Service: Oct 25, 2024 Billing Provider: BRIAN HERRERA Common Visit Codes: 21180-QHXTZZT INP/OBS CARE (HIGH) Secondary Visit Codes: 44788-JAZLXPAE CARE PLAN 30 MINUTES BRIAN HERRERA Oct 25, 2024 14:31
[2024-10-25] MEDS: normal saline 1000ml 1,000 ML IV SCH (14:46)
[2024-10-25] MEDS: heparin, porcine 5000 units/ml vial SQ SCH (16:00)
[2024-10-25] MEDS: INSULIN LISPRO 100 UNIT/ML INSULN.PEN MULTI-DOSE SQ SCH (16:43)
[2024-10-25] MEDS: pantoprazole 40 MG vial IV ONE (17:11)
[2024-10-25] MEDS ORDERED: LORazepam 1 MG tablet PO PRN (17:25)
[2024-10-25] MEDS: K and/or MAG REPLACEMENT MC SCH (20:00)
[2024-10-25] MEDS: docusate sod 100mg capsule PO SCH (20:03)
[2024-10-25] MEDS: carVEDilol 3.125mg tablet PO SCH (20:04)
[2024-10-25 20:25] VITALS: BP 150/87; PULSE 94; RESP 20; TEMP 98; O2SAT 96
[2024-10-25 21:00] VITALS: RESP 15; O2SAT 96
[2024-10-25] MEDS: atorvastatin 20mg tablet PO SCH (22:00)
[2024-10-26] VITALS (9 sets, daily range): BP systolic 126–147; BP diastolic 75–84; PULSE 78–98; RESP 16–17; TEMP 97.6; O2SAT 96–99
[2024-10-26 06:17] LABS: BASOPHILS # (AUTO) 0.1 X10'3 (0-0.2); BASOPHILS % (AUTO) 0.7 % (0-1); EOSINOPHILS # (AUTO) 0.2 X10'3 (0-0.9); EOSINOPHILS % (AUTO) 2.7 % (0-6); HEMATOCRIT 42.3 % (35.0-45.0); HEMOGLOBIN 14.5 g/dl (12.0-16.0); LYMPHOCYTES % (AUTO) 36.9 % (21-51); MEAN CORPUSCULAR HGB CONC 34.2 g/dL (33.0-36.5); MEAN CORPUSCULAR VOLUME 87.5 FL (78-98); MEAN PLATELET VOLUME 8.4 FL (7.4-10.4); MONOCYTES # (AUTO) 0.7 X10'3 (0-0.9); MONOCYTES % (AUTO) 8.3 % (2-12); NEUTROPHILS # (AUTO) 4.1 X10'3 (1.8-7.7); NEUTROPHILS % (AUTO) 51.4 % (42-75); PLATELET COUNT 279 X10'3 (140-440); RED BLOOD COUNT 4.84 X10'6 (4.20-5.60)
[2024-10-26] MEDS: losartan 50mg tablet PO SCH (06:59)
[2024-10-26] MEDS: aspirin 81mg, enteric-coated 1 TAB TABLET.DR PO SCH (07:44)
[2024-10-26] MEDS: pantoprazole 40 MG vial IV SCH (07:44)
[2024-10-26 07:46] LABS: ANION GAP 7 (8-16); BILIRUBIN,TOTAL 0.9 MG/DL (0.1-1.0); BLOOD UREA NITROGEN 14 MG/DL (7-18); BUN/CREATININE RATIO 22.6 (10.0-20.0); CALCIUM 8.3 MG/DL (8.5-10.1); CHLORIDE 104 MMOL/L (99-107); CREATININE 0.62 MG/DL (0.40-0.90); GLUCOSE 125 MG/DL (70-104); MAGNESIUM 2.1 MG/DL (1.5-2.4); POTASSIUM 3.5 MMOL/L (3.5-5.1); SODIUM 140 MMOL/L (135-145); TOTAL PROTEIN 7.2 G/DL (6.4-8.2); eCRCL 103 ML/MIN; eGFR > 90 ML/MIN
[2024-10-26 07:47] LABS: ALANINE AMINOTRANSFERASE 50 U/L (12-78); ALBUMIN 3.6 G/DL (3.4-5.0); ALKALINE PHOSPHATASE 67 IU/L (46-116); ASPARTATE AMINO TRANSFERASE 28 U/L (10-37)
[2024-10-26] MEDS ORDERED: hydrALAZINE 20mg/ml inj. IV PRN (08:30)
[2024-10-26] MEDS: regadenoson 0.4mg/5ml syringe IV PRN (10:57)
[2024-10-26] MEDS: ondansetron/PF 4mg/2ml inj IV PRN (13:02)
--- NOTE | 2024-10-26 13:53 | RADIOLOGY REPORT ---
Reason for study/Clinical History: chest pain, HEART score 4 Comparison Study: NM MYOCARD PERF W REGADENOSON (LEXISCAN) on DOS: 10/01/24 Myocardial Perfusion Study with SPECT Technique: The patient received an intravenous injection of 8.5 mCi of technetium-99m Sestamibi whi le at rest. After a short delay, SPECT tomographic images of the heart were obtained. The patient higinio mccabe went to the stress lab where they received an intravenous Lexiscan utilizing standard protocol. 3 5.3 mCi of technetium-99m Sestamibi was injected intravenously immediately after the start of the i nfusion. Gated SPECT tomographic images of the heart were acquired and processed. Findings: Rotating planar images show no significant attenuation artifact. The left ventricular size is within normal limits. Stress tomographic images demonstrate normal perfusion. Resting tomographic images demonstrate a similar pattern. Gated portion of the study shows normal wall motion and myocardial thickening. The left ventricular ejection fraction is 51 %. (normal greater than 50%) Impression: Normal left ventricular size, wall motion, and function, without evidence of infarction or of myocard ium at ischemic risk. The left ventricular ejection fraction is 51 %.
[2024-10-26] MEDS ORDERED: LOSA50TA64 PO (14:29)
[2024-10-26] MEDS ORDERED: PANT40TA54 PO (14:33)
[2024-10-26] MEDS ORDERED: LORA-269 PO (14:33)
--- NOTE | 2024-10-26 15:28 | DISCHARGE SUMMARY ---
Discharge Summary Providers to CC ~ Discharge Summary Admission Diagnosis: r/o ACS Hospital Course DATE OF ADMISSION: 10/25/24 DATE OF DISCHARGE: 10/26/24 Discharge Diagnosis\Comment: ACS- ruled out GERD Atypical chest pain likely 2/2 GERD Class III obesity Hyperlipidemia Hypertension NIDDM TIA Operations\Procedures: None Consultants: None Complications: None Condition on DC: Stable New Medications: Lorazepam (Ativan) 1 Mg Tablet 1 TAB PO Q12H PRN PRN for anxiety for 10 Days, #20 TAB 0 Refills Pantoprazole Sodium (Pantoprazole Sodium) 40 Mg Tablet.dr 40 MG PO DAILY for 30 Days, #30 Losartan Potassium (Losartan Potassium) 50 Mg Tablet 100 MG PO DAILY for 90 Days, #90 TAB Continued Medications: Amlodipine Besylate (Amlodipine Besylate) 5 Mg Tablet 10 MG PO DAILY for 30 Days, #60 TAB Aspirin (Ecotrin*) 81 Mg Tablet.dr 1 TAB PO DAILY for 30 Days, #30 TAB.SR Atorvastatin Calcium (Atorvastatin Calcium) 20 Mg Tablet 80 MG PO DAILY for 30 Days, #30 TAB Carvedilol (Carvedilol) 3.125 Mg Tablet 3.125 MG PO BID for 30 Days, #60 TAB Empagliflozin (Jardiance) 25 Mg Tablet 25 MG PO DAILY for 30 Days, #30 TAB Metformin Hcl (Metformin Hcl) 500 Mg Tablet 1 TAB PO Q12H for 30 Days, #60 TAB 0 Refills Discontinued Medications: Losartan Potassium* (Cozaar*) 25 Mg Tablet 2 TAB PO DAILY PRN for high blood pressure for 30 Days, #30 TAB Discharge Summary: History of Present Illness Omayra Fu is a 44-year-old female with a past medical history of hypertension, hyperlipidemia, class III obesity, NIDDM, TIA who was transferred from [facility] for evaluation of chest pain that started today while in bed. Patient describes medial nonradiating chest pain that is burning quality. Patient denies prior [place]/CAD, CVA, cardiac arrhythmia, DVT/PE, or GIB. Patient denies palpitations, shortness of breath, abdominal pain, n/v/d. Diagnostic findings including troponin series and D-dimer at the outside facility and at [facility] ED including chest x-ray are unremarkable. EKG shows sinus rhythm at a rate of [address]-elevation/depression. TTE complete on 5/23/25 revealed moderate concentric hypertrophy, LVEF 60-65%, no significant VHD. Patient does not have a chisel worker. Given presentation and history, patient is to be admitted for further workups and treatment. Hospital Course Patient was started on statin, aspirin, prn nitroglycerin, PPI, antianxiolytics, hyper/hypoglycemia protocol. Further diagnostic workups including Lexiscan, with HEART score of 4, resulted negative for evidence of infarction or any myocardium at ischemic risk. Telemetry remained sinus in 70s. Patient did not experience further complications throughout the entire hospital stay and remained clinically and hemodynamically stable. Patient was seen and examined on the day of discharge. On day of discharge, vss and labs unremarkable. Patient no longer reports chest pain. Given medical history, chest pain likely due to GERD. All labs, diagnostic workups, discharge plan discussed with patient in details during visit before discharge. All questions and concerns answered to the best of my professional knowledge. Patient recovered well faster than expected. Patient is to be discharged to home to self and to follow-up with PCP within 2 weeks. Physical Exam General: A&Ox 3, NAD, morbidly obese HEENT: Normocephalic, PERRLA Neck: Supple, trachea midline, no JVD Chest: Clear to auscultation bilaterally Cardiovascular: RRR, S1&S2 GI: Soft and nontender Extremities: No cyanosis/clubbing/or edema FUND ACCOUNTANT: CN II-XII intact, no focal deficits Musculoskeletal: No paraspinal muscle tenderness, no muscle spasm Skin: Warm and intact *Problems/Diagnosis: (1) Chest pain Status: Acute (2) Hypertension Status: Chronic Total Time Spent on D/C: > 30 Minutes Date of Service: Oct 26, 2024 Billing Provider: BRIAN HERRERA Common Visit Codes: 27448-OBP/OBS DISCH DAY >30min BRIAN HERRERA Oct 26, 2024 15:25
[2024-10-27] MEDS ORDERED: losartan 50mg tablet PO SCH (08:00)
== END 2024-10-26 11:48 | disposition home or self-care (01) | DRG 243 ==
LOC: ER 10:03 → ED HOLD 12:42 → ORTHO 4S 20:35
PROVIDERS: ADMIT Nurse Practitioner Family; ATTEND Nurse Practitioner Family
PROC: 4A02XM4 Measurement of Cardiac Total Activity, External Approach (ICD-10-PCS; principal; 2024-10-26)
PROC: 3E033HZ Introduction of Radioactive Substance into Peripheral Vein, Percutaneous Approach (ICD-10-PCS; 2024-10-26)
DX: K21.9 Gastro-esophageal reflux disease without esophagitis (principal); E11.9 Type 2 diabetes mellitus without complications; E66.813 Obesity, class 3; E78.5 Hyperlipidemia, unspecified; I10 Essential (primary) hypertension; G89.29 Other chronic pain; Z79.82 Long term (current) use of aspirin; Z79.899 Other long term (current) drug therapy; Z79.84 Long term (current) use of oral hypoglycemic drugs; Z86.73 Personal history of transient ischemic attack (TIA), and cerebral infarction without residual deficits; Z87.891 Personal history of nicotine dependence; Z88.0 Allergy status to penicillin; Z98.891 History of uterine scar from previous surgery; Z68.42 Body mass index [BMI] 45.0-49.9, adult
CPT/HCPCS: 36415; 71045; 78452; 80053; 80061; 80305; 81025; 82948; 83735; 83880; 84484; 85025; 85379; 85610; 87081; 93005; 93017; 96374; 96375; 99285; A9500; G0378; J1644; J1815; J2270; J2405; J2470; J2785; J7030